=== PATIENT | female | born 1945 | race Caucasian/White ===

== ENCOUNTER 2024-04-19 12:58 | Inpatient (IN) | payer MEDICARE ==
--- NOTE | 2024-04-19 14:17 | ED ---
General Adult HPI - General Chief complaint: Weakness Stated complaint: weakness Time Seen by Provider: 04/19/24 14:00 Source: patient, EMS, RN notes reviewed, old records reviewed Mode of arrival: EMS Limitations: altered mental status - History of Present Illness Initial comments: This 78-year-old female who presents to the emergency department today because she was unable to ambulate this morning because both of her legs are weak. According to the son in the room she was able to walk yesterday but unable to walk today. Patient also had a fall on Thursday and landed on her bottom she is able to move both legs and denies any significant pain though she states her right hip hurts a little. Patient according to the son was a little confused this morning but currently she seems to be at her baseline according to the son. Patient has no headache patient denies any focal numbness or weakness. Patient Nuys any chest pain denies any difficulty breathing or shortness of breath. Patient has any abdominal pain patient has nausea vomiting diarrhea. - Related Data Home Medications Medication Instructions Recorded Confirmed Donepezil [Aricept] 10 mg PO HS 05/08/14 04/19/24 Lisinopril-Hctz 20-25 mg 1 tab PO DAILY 05/08/14 04/19/24 [Zestoretic 20-25] Simvastatin [Zocor] 20 mg PO HS 05/08/14 04/19/24 amLODIPine [Norvasc] 10 mg PO DAILY 05/08/14 04/19/24 Aspirin EC [Ecotrin Low Dose] 81 mg PO DAILY 04/19/24 04/19/24 Citalopram Hydrobromide [CeleXA] 20 mg PO HS 04/19/24 04/19/24 Metoprolol Succinate (ER) [Toprol 50 mg PO DAILY 04/19/24 04/19/24 Xl] Allergies Allergy/AdvReac Type Severity Reaction Status Date / Time No Known Allergies Allergy Verified 04/19/24 14:57 Review of Systems ROS Statement: Those systems with pertinent positive or pertinent negative responses have been documented in the HPI. ROS Other: All systems not noted in ROS Statement are negative. Past Medical History Past Medical History: CVA/TIA, Hyperlipidemia, Hypertension, Memory Impairment, Osteoarthritis (OA) History of Any Multi-Drug Resistant Organisms: None Reported Past Surgical History: Cholecystectomy, Hysterectomy, Tonsillectomy Past Anesthesia/Blood Transfusion Reactions: No Reported Reaction Past Psychological History: Depression Smoking Status: Never smoker Past Alcohol Use History: None Reported Past Drug Use History: None Reported - Past Family History Mother Family Medical History: Cancer General Exam - General Exam Comments Initial Comments: GENERAL: Patient is well-developed and well-nourished. Patient is nontoxic and well- hydrated and is in mild distress. ENT: Neck is soft and supple. No significant lymphadenopathy is noted. Oropharynx is clear. Moist mucous membranes. Neck has full range of motion without eliciting any pain. EYES: The sclera were anicteric and conjunctiva were pink and moist. Extraocular movements were intact and pupils were equal round and reactive to light. Eyelids were unremarkable. PULMONARY: Unlabored respirations. Good breath sounds bilaterally. No audible rales rhonchi or wheezing was noted. CARDIOVASCULAR: There is a regular rate and rhythm without any murmurs gallops or rubs. ABDOMEN: Soft and nontender with normal bowel sounds. No palpable organomegaly was noted. There is no palpable pulsatile mass. SKIN: Intertrigo under the breasts and pannus patient has a stage I decubitus ulcer on the sacral area NEUROLOGIC: Patient is alert and oriented x3. Cranial nerves II through XII are grossly intact. Motor and sensory are also intact. Normal speech, volume and content. Symmetrical smile. NIH is 0 MUSCULOSKELETAL: Normal extremities with adequate strength and full range of motion. Mild posterior right hip pain on palpation but full range of motion LYMPHATICS: No significant lymphadenopathy is noted PSYCHIATRIC: Normal psychiatric evaluation. Limitations: altered mental status Course Vital Signs 04/19/24 04/19/24 13:03 15:03 Temperature 97.4 F L Pulse Rate 85 81 Respiratory 18 18 Rate Blood Pressure 154/78 155/81 O2 Sat by Pulse 95 96 Oximetry Medical Decision Making - Medical Decision Making EKG is interpreted by myself. EKG shows a sinus rhythm with an occasional PAC at a rate of 81 bpm parables 179 QRS is 80 QT interval 370 QTc is 408. Patient's EKG shows no ST segment elevation or depression. Was pt. sent in by a medical professional or institution (, PA, THERAPEUTIC PROGRAM WORKER, urgent care, hospital, or half-way...) When possible be specific @ -No Did you speak to anyone other than the patient for history (EMS, parent, family, police, friend...)? What history was obtained from this source @ -This son relayed quite a bit of the history because the patient was somewhat forgetful Did you review nursing and triage notes (agree or disagree)? Why? @ -I reviewed and agree with nursing and triage notes Were old charts reviewed (outside hosp., previous admission, EMS record, old EKG, old radiological studies, urgent care reports/EKG's, half-way records)? Report findings @ -No old charts were reviewed Differential Diagnosis? @ -Differential Weakness: Hypoglycemia, shock, sepsis, hyponatremia, anemia, infection, ME, ETOH, adverse medicine reaction, overdose, stroke, this is not meant to be an all-inclusive list. EKG interpreted by me (3pts min.). @ -As above X-rays interpreted by me (1pt min.). @ -X-ray shows no acute normality CT interpreted by me (1pt min.). @ -None done U/S interpreted by me (1pt. min.). @ -None done What testing was considered but not performed or refused? (CT, X-rays, U/S, labs)? Why? @ -None What meds were considered but not given or refused? Why? @ -None Did you discuss the management of the patient with other professionals (professionals i.e. , PA, THERAPEUTIC PROGRAM WORKER, lab, RT, psych nurse, protective services social worker, supervisor [employer], teacher, co founder and chief strategy officer, case aide)? Give summary @ -I spoke with [facility] hospitalist and he agreed to admit the patient admit the patient for admitting orders Was smoking cessation discussed for >3mins.? @ -No Was critical care preformed (if so, how long)? @ -No Were there social determinants of health that impacted care today? How? (Homeles sness, low income, unemployed, alcoholism, drug addiction, transportation, low edu. Level, literacy, decrease access to med. care, skilled nursing, rehab)? @ -No Was there de-escalation of care discussed even if they declined (Discuss DNR or withdrawal of care, Hospice)? DNR status @ -No What co-morbidities impacted this encounter? (DM, HTN, Smoking, COPD, CAD, Cancer, CVA, ARF, Chemo, Hep., AIDS, mental health diagnosis, sleep apnea, morbid obesity)? @ -None Was patient admitted / discharged? Hospital course, mention meds given and route, prescriptions, significant lab abnormalities, going to OR and other pertinent info. @ -Patient had a urinary tract infection but was still unable to ambulate I could not find no other source of infection so I will be treating the patient for a urinary tract infection. Undiagnosed new problem with uncertain prognosis? @ -No Drug Therapy requiring intensive monitoring for toxicity (Heparin, Nitro, Insulin, Cardizem)? @ -No Were any procedures done? @ -No Diagnosis/symptom? @ -Urinary tract infection Acute, or Chronic, or Acute on Chronic? @ -Acute Uncomplicated (without systemic symptoms) or Complicated (systemic symptoms)? @ -Complicated Side effects of treatment? @ -No Exacerbation, Progression, or Severe Exacerbation? @ -No Poses a threat to life or bodily function? How? (Chest pain, USA, ME, pneumonia, PE, COPD, DKA, ARF, appy, cholecystitis, CVA, Diverticulitis, Homicidal, Suicidal, threat to staff... and all critical care pts) @ -Yes this could lead to sepsis and endorgan dysfunction Diagnosis/symptom? @ -Inability to ambulate Acute, or Chronic, or Acute on Chronic? @ -Acute Uncomplicated (without systemic symptoms) or Complicated (systemic symptoms)? @ -Complicated Side effects of treatment? @ -None Exacerbation, Progression, or Severe Exacerbation] @ -No Poses a threat to life or bodily function? @ -No - Lab Data Result diagrams: 04/19/24 14:21 Lab Results 04/19/24 04/19/24 04/19/24 Range/Units 14:21 14:21 14:21 WBC 16.4 H (3.8-10.6) k/uL RBC 5.22 (3.80-5.40) m/uL Hgb 15.1 (11.4-16.0) gm/dL Hct 47.5 H (34.0-46.0) % MCV 91.0 (80.0-100.0) fL MCH 28.9 (25.0-35.0) pg MCHC 31.7 (31.0-37.0) g/dL RDW 14.0 (11.5-15.5) % Plt Count 237 (150-450) k/uL MPV 8.0 Neutrophils % 86 % Lymphocytes % 5 % Monocytes % 6 % Eosinophils % 2 % Basophils % 0 % Neutrophils # 14.1 H (1.3-7.7) k/uL Lymphocytes # 0.8 L (1.0-4.8) k/uL Monocytes # 1.0 (0-1.0) k/uL Eosinophils # 0.3 (0-0.7) k/uL Basophils # 0.0 (0-0.2) k/uL PT 11.5 (10.0-12.5) sec INR 1.1 (<1.2) APTT 20.4 L (22.0-30.0) sec Plasma Lactic Acid Akhil (0.7-2.0) mmol/L Troponin I (0.000-0.034) ng/mL Urine Color Yellow Urine Appearance Cloudy H (Clear) Urine pH 5.0 (5.0-8.0) Ur Specific [place] 1.023 (1.001-1.035) Urine Protein Trace H (Negative) Urine Glucose (UA) Negative (Negative) Urine Ketones Negative (Negative) Urine Blood Moderate H (Negative) Urine Nitrite Negative (Negative) Urine Bilirubin Negative (Negative) Urine Urobilinogen 2.0 (<2.0) mg/dL Ur Leukocyte Esterase Large H (Negative) Urine RBC 8 H (0-5) /hpf Urine WBC 6 H (0-5) /hpf Ur Squamous Epith Cells 1 (0-4) /hpf Urine Bacteria Many H (None) /hpf Hyaline Casts 1 (0-2) /lpf Urine Mucus Rare H (None) /hpf 04/19/24 04/19/24 Range/Units 14:21 14:21 WBC (3.8-10.6) k/uL RBC (3.80-5.40) m/uL Hgb (11.4-16.0) gm/dL Hct (34.0-46.0) % MCV (80.0-100.0) fL MCH (25.0-35.0) pg MCHC (31.0-37.0) g/dL RDW (11.5-15.5) % Plt Count (150-450) k/uL MPV Neutrophils % % Lymphocytes % % Monocytes % % Eosinophils % % Basophils % % Neutrophils # (1.3-7.7) k/uL Lymphocytes # (1.0-4.8) k/uL Monocytes # (0-1.0) k/uL Eosinophils # (0-0.7) k/uL Basophils # (0-0.2) k/uL PT (10.0-12.5) sec INR (<1.2) APTT (22.0-30.0) sec Plasma Lactic Acid Akhil 1.8 (0.7-2.0) mmol/L Troponin I 0.022 (0.000-0.034) ng/mL Urine Color Urine Appearance (Clear) Urine pH (5.0-8.0) Ur Specific [place] (1.001-1.035) Urine Protein (Negative) Urine Glucose (UA) (Negative) Urine Ketones (Negative) Urine Blood (Negative) Urine Nitrite (Negative) Urine Bilirubin (Negative) Urine Urobilinogen (<2.0) mg/dL Ur Leukocyte Esterase (Negative) Urine RBC (0-5) /hpf Urine WBC (0-5) /hpf Ur Squamous Epith Cells (0-4) /hpf Urine Bacteria (None) /hpf Hyaline Casts (0-2) /lpf Urine Mucus (None) /hpf Disposition Clinical Impression: Weakness, Inability to walk, Urinary tract infection Disposition: ADMITTED IP TO THIS HOSP Referrals: Chika Waggoner DO [Primary Care Provider] - 1-2 days Time of Disposition: 17:26
[2024-04-19] MEDS: SODIUM CHLORIDE 0.9% 500 ML 500 ML IV STA (14:45)
[2024-04-19 14:48] LABS: Basophils % (A) 0 %; Eosinophils # (A) 0.3 k/uL (0-0.7); Eosinophils % (A) 2 %; HCT 47.5 % (34.0-46.0); HGB 15.1 gm/dL (11.4-16.0); Lymphocytes # (A) 0.8 k/uL (1.0-4.8); Lymphocytes % (A) 5 %; MCH 28.9 pg (25.0-35.0); MCHC 31.7 g/dL (31.0-37.0); Monocytes % (A) 6 %; Neutrophils # (A) 14.1 k/uL (1.3-7.7); Neutrophils % (A) 86 %; Platelet Count 237 k/uL (150-450); RBC 5.22 m/uL (3.80-5.40); WBC 16.4 k/uL (3.8-10.6)
[2024-04-19 15:24] LABS: INR 1.1 (<1.2); Prothrombin Time 11.5 sec (10.0-12.5)
--- NOTE | 2024-04-19 16:01 | XR ---
EXAMINATION TYPE: XR chest 2V DATE OF EXAM: 04/19/2024 3:50 PM CLINICAL INDICATION:Female, 78 years old with history of Weakness; COMPARISON: None TECHNIQUE: XR chest 2V Frontal and lateral views of the chest. FINDINGS: Lungs/Pleura: There is no evidence of pleural effusion, focal consolidation, or pneumothorax. Pulmonary vascularity: Unremarkable. Heart/mediastinum: Cardiomediastinal silhouette is unremarkable. Atherosclerotic calcifications are seen in the aorta. Musculoskeletal: No acute osseous pathology. IMPRESSION: No acute cardiopulmonary disease/process.
[2024-04-19 16:02] LABS: Partial Thromboplastin Time 20.4 sec (22.0-30.0)
[2024-04-19 16:18] LABS: Appearance,Urine Cloudy (Clear); Bacteria,Urine Many /hpf; Bilirubin,Urine Negative (Negative); Blood,Urine Moderate (Negative); Color,Urine Yellow; Glucose,Urine (UA) Negative (Negative); Hyaline Casts,Urine 1 /lpf (0-2); Ketones,Urine Negative (Negative); Leukocyte Esterase,Urine Large (Negative); Mucus,Urine Rare /hpf; Nitrite,Urine Negative (Negative); Protein,Urine Trace (Negative); RBC,Urine 8 /hpf (0-5); Specific Gravity,Urine 1.023 (1.001-1.035); Squamous Epithelial Cell,Urine 1 /hpf (0-4); WBC,Urine 6 /hpf (0-5)
[2024-04-19 17:18] LABS: ALT 28 U/L (4-34); African American GFR (CKD) 63 (>60 ml/min/1.73 sqM); Anion Gap 11 mmol/L; Blood Urea Nitrogen 38 mg/dL (7-17); Calcium 9.9 mg/dL (8.4-10.2); Carbon Dioxide 22 mmol/L (22-30); Chloride 106 mmol/L (98-107); Glucose 121 mg/dL (74-99); Non-African American GFR(CKD) 54 (>60 ml/min/1.73 sqM); Sodium 139 mmol/L (137-145); Total Bilirubin 2.2 mg/dL (0.2-1.3)
[2024-04-19 17:23] LABS: AST 41 U/L (14-36); Alkaline Phosphatase 84 U/L (38-126); Magnesium 1.9 mg/dL (1.6-2.3); Potassium 3.5 mmol/L (3.5-5.1)
[2024-04-19] MEDS: SODIUM CHLORIDE 0.9% 1,000 ML IV ONE (17:36)
--- NOTE | 2024-04-19 17:49 | XR ---
EXAMINATION TYPE: XR Hip 2 views RT and AP Pelvis DATE OF EXAM: 04/19/2024 COMPARISON: DEXA scan 07/26/2014 HISTORY: 78-year-old female with right hip pain FINDINGS: There is moderate to severe degenerative change of the left hip with axial joint space loss and exten sive subchondral sclerosis especially of the femoral head. This extensive sclerosis appears to have b een present on the patient's 2013 DEXA scan as well. Assessment is limited by the degree of osteopeni a. No displaced fracture seen. IMPRESSION: Assessment is limited by osteopenia. No displaced fracture seen. Moderate to severe left hip OA. If the patient is nonweightbearing, MRI can provide more sensitive evaluation.
[2024-04-19] MEDS: cefTRIAXone IN SWFI 1,000 MG/10 ML SYRINGE IVP STA (18:01)
[2024-04-20] MEDS: ZINC OXIDE PASTE (Z-GUARD) 1 APPLIC TOPICAL SCH (00:17)
[2024-04-20] MEDS: HEPARIN SODIUM,PORCINE 5,000 UNIT/ML 1 ML VIAL SQ SCH (13:21)
[2024-04-20] MEDS: ASPIRIN 81 MG PO SCH (13:21)
[2024-04-20] MEDS: PANTOPRAZOLE 40 MG TABLET PO SCH (13:21)
--- NOTE | 2024-04-20 14:00 | HP ---
HISTORY AND PHYSICAL CHIEF COMPLAINT: Weakness. HISTORY OF PRESENT ILLNESS: This is a 78-year-old woman with a past medical history of multiple medical problems including CVA, TIA, hypertension, hyperlipidemia, was complaining of weakness. The patient apparently had a fall yesterday and the patient is not able to walk. The patient is mildly confused also. The patient came to [facility] and was noted to have possible UTI also. Empiric antibiotics initiated. There is no history of any fever, rigors, or chills at this time. The hip, pelvis x-rays showed osteopenia and DJD of the left hip. There is no history of any fever, rigors, or chills. PAST MEDICAL HISTORY: History of CVA, TIA, hypertension, hyperlipidemia, and history of dementia. HOME MEDICATIONS: Reviewed include Norvasc. Doses and rest of medications noted. ALLERGIES: None. FAMILY HISTORY: History of cancer. SOCIAL HISTORY: No history of smoking or alcohol. REVIEW OF SYSTEMS: A 14-point review is negative except as mentioned earlier. PHYSICAL EXAMINATION: VITAL SIGNS: Pulse is 55, blood pressure 106/50, respirations 16. HEENT: Conjunctivae normal. NECK: No jugular venous distention. CARDIOVASCULAR: S1, S2. RESPIRATIONS: Diminished at the bases, few scattered rhonchi and crackles. ABDOMEN: Soft. NERVOUS SYSTEM: Diffusely weak. No focal weakness appreciated. Gait not tested. SKIN: No ulcer, rash, bleeding. JOINTS: No active deforming arthropathy. LABORATORY DATA: WBC 16.2, rest of the labs are noted. ASSESSMENT: 1. Fall and weakness for evaluation. 2. Possible acute UTI present on admission. 3. Increased WBC. 4. Hypertension. 5. Hyperlipidemia. 6. History of TIA. 7. History of DJD. 8. History of cholecystectomy. RECOMMENDATIONS AND DISCUSSION: This 78-year-old woman presented with multiple complex medical issues, we will monitor the patient closely. Initiate broad-spectrum IV antibiotics. I would also recommend PT, OT evaluation, and CT scan of the brain and assess lumbar spine x-rays also. If the weakness is not improving, I would also recommend a complete neurology evaluation, neurology consultation. Also, we will continue to monitor. Guarded prognosis. Further recommendations to follow. See orders for details. We will obtain PT OT evaluation if the patient is really weak, possible ECF rehab. Symptomatic treatment will be provided in the meantime. MMODL / IJN: [id number] /
--- NOTE | 2024-04-20 14:42 | CT ---
EXAMINATION TYPE: CT brain wo con CT DLP: 1047.1 mGycm, Automated exposure control for dose reduction was used. DATE OF EXAM: 04/20/2024 2:21 PM COMPARISON: 01/28/2011. CLINICAL INDICATION:Female, 78 years old with history of stroke, h/o stroke TECHNIQUE: Brain: Axial CT images of the brain were obtained with coronal and sagittal reformats created and rev iewed. Contrast used: None. Oral contrast used: None. FINDINGS: Brain: Extra-axial spaces: No abnormal extra-axial fluid collections. Ventricular system: Dilatation in proportion to cerebral atrophy. Cerebral parenchyma: Hypodense areas in the bilateral basal ganglia and left thalami. Cerebral atroph y. No acute intraparenchymal hemorrhage or mass effect. The sosa-white junction is well differentiat ed. Scattered hypoattenuating areas are seen within the white matter. Cerebellum: Unremarkable. Mass effect: No evidence of midline shift. Intracranial vasculature: Atherosclerotic calcifications of the intracranial vessels. Soft tissues: Normal. Calvarium/osseous structures: No depressed skull fracture. Paranasal sinuses and mastoid air cells: Mild scattered paranasal sinus disease. Visualized orbits: Orbital contents are intact. IMPRESSION: 1. No acute intracranial process. 2. Remote lacunar injuries along with nonspecific white matter changes likely secondary to chronic mi croangiopathy.
--- NOTE | 2024-04-20 16:30 | XR ---
EXAMINATION TYPE: XR spine complete AP and Lat, 9 views DATE OF EXAM: 04/20/2024 COMPARISON: NONE HISTORY: 78-year-old female fall and weakness FINDINGS: Cervical spine: No predental space widening or prevertebral soft tissue swelling. Degenerative change at the C1 dens articulation. Hypertrophic facet arthropathy throughout. There is degenerative grade 1 anterolisthesi s C3-C4 and C4-C5. Remaining alignment is maintained. Mild to moderate degenerative disc disease sugg ested at C5-C7 levels with disc space narrowing and endplate spondylosis. Thoracic spine: 12 rib-bearing thoracic vertebral bodies. All pedicles are visualized. Osteopenia. Vertebral body hei ghts are preserved and alignment is maintained. Lumbar spine: Slightly upper truncal shift. 5 lumbar type vertebral bodies. Advanced hypertrophic facet arthropathy mid to lower lumbar spine with grade 2 anterolisthesis at L4-L5. Grade 1 retrolisthesis L1-L2, L2-L3 , L3-L4. Vertebral body heights are preserved. Atherosclerotic calcifications throughout the abdomina l aorta and iliac arteries. Osteopenia. Baastrup's disease. IMPRESSION: 1. Cervical spine: Moderate spondylotic change especially C5-C7 levels. Degenerative grade 1 anteroli sthesis C3-C4 and C4-C5. 2. Thoracic spine: Osteopenia. No vertebral compression collapse or malalignment. 3. Lumbar spine: Osteopenia. Advanced hypertrophic facet arthropathy mid to lower lumbar spine with g rade 2 anterolisthesis at L4-L5. Grade 1 retrolisthesis L1-L4 levels. Baastrup's disease.
[2024-04-20] MEDS: THIAMINE 100 MG TAB PO SCH (18:44)
[2024-04-20] MEDS: ATORVASTATIN 10 MG TAB PO SCH (20:19)
[2024-04-20] MEDS: DONEPEZIL 10 MG TAB PO SCH (20:19)
[2024-04-20] MEDS: CITALOPRAM HYDROBROMIDE 20 MG TAB PO SCH (20:19)
[2024-04-21] MEDS: ACETAMINOPHEN TAB 500 MG TAB PO PRN (02:54)
[2024-04-21 08:00] LABS: African American GFR (CKD) >90 (>60 ml/min/1.73 sqM); Anion Gap 5 mmol/L; Blood Urea Nitrogen 14 mg/dL (7-17); Calcium 9.3 mg/dL (8.4-10.2); Carbon Dioxide 25 mmol/L (22-30); Chloride 108 mmol/L (98-107); Glucose 95 mg/dL (74-99); Non-African American GFR(CKD) 86 (>60 ml/min/1.73 sqM); Potassium 3.5 mmol/L (3.5-5.1); Sodium 138 mmol/L (137-145)
[2024-04-21] MEDS: amLODIPine 10 MG TAB PO SCH (08:52)
[2024-04-21] MEDS: LISINOPRIL-HCTZ 20-25 MG 1 EACH TAB PO SCH (08:52)
[2024-04-21] MEDS: METOPROLOL SUCCINATE (ER) 50 MG TAB.ER.24H PO SCH (08:52)
[2024-04-21 11:01] LABS: Basophils # (A) 0.08 X 10*3/uL (0.00-0.10); Basophils % (A) 0.7 %; Eosinophils # (A) 0.37 X 10*3/uL (0.04-0.35); Eosinophils % (A) 3.3 %; HCT 43.5 % (37.2-46.3); HGB 13.8 g/dL (12.0-15.0); Lymphocytes # (A) 1.39 X 10*3/uL (0.90-5.00); Lymphocytes % (A) 12.3 %; MCH 29.5 pg (27.0-32.0); MCHC 31.7 g/dL (32.0-37.0); MCV 92.9 FL (80.0-97.0); Monocytes % (A) 8.9 %; NRBC Per 100 WBC 0 X 10*3/uL (0.00-0.01); Neutrophils # (A) 8.36 X 10*3/uL (1.80-7.70); Neutrophils % (A) 74.1 %; Platelet Count 223 X 10*3/uL (140-440); RBC 4.68 X 10*6/uL (4.10-5.20); RDW 14.3 % (11.5-14.5); WBC 11.28 X 10*3/uL (4.50-10.00)
[2024-04-21] MEDS: MULTIVITAMINS, THERA 1 EACH TAB PO SCH (11:55)
[2024-04-21] MEDS: FOLIC ACID 1 MG TAB PO SCH (11:55)
--- NOTE | 2024-04-21 14:53 | P.CNNES ---
History of Present Illness Consult date: 04/21/24 Requesting physician: Demetra Young Reason for Consult: weakness, ams, hx of cva/tia History of Present Illness: This is a 78-year-old woman who presented emergency department because of trouble standing up with leg weakness. Patient stated for the last several days she has been having problems standing up and she has been having leg weakness. She stated she had a fall within 3 weeks because of her loss of balance. Denies any focal weakness, any lower back pain. Denies any upper extremity weakness difficulty getting words out swallowing visual disturbance or numbness or tingling. She states she wears briefs at baseline. Denies any bowel incontinence. She feels somewhat better today compared to yesterday. Does have history of old stroke and she is on aspirin 81 mg daily. Some of the workup during this hospital visit consisted of: Urinalysis seems possible suggestive of underlying urinary tract infection CT of the head is reported as no acute intracranial process. Remote lacunar injuries along with nonspecific white matter changes likely secondary to chronic microangiopathy. Reviewed CT and I agree patient has chronic white matter changes. Seems the patient has bilateral lacunar stroke over the basal ganglia Spine x-ray and is reported as cervical spine of moderate spondylitic changes especially C5-C6 level degenerative grade 1 anterior lithiasis C3-C4 and C4-C5. The thoracic shows osteopenia. No vertebral or compression collapse or malalignment. Lumbar shows osteopenia. Advanced hypertrophic facet arthroplasty mild to lower lumbar spine with a grade 2 anterior lithiasis at L4-L5. Grade 1 retrolisthesis L1-L4 level. Baastrup disease. Review of Systems The positive and negative as per HPI. Past Medical History Past Medical History: CVA/TIA, Hyperlipidemia, Hypertension, Memory Impairment, Osteoarthritis (OA) Additional Past Medical History / Comment(s): Pt states this is all that she knows of right now History of Any Multi-Drug Resistant Organisms: None Reported Past Surgical History: Cholecystectomy, Hysterectomy, Tonsillectomy Past Anesthesia/Blood Transfusion Reactions: No Reported Reaction Past Psychological History: Depression Smoking Status: Never smoker Past Alcohol Use History: None Reported Past Drug Use History: None Reported - Past Family History Mother Family Medical History: Cancer Medications and Allergies Home Medications Medication Instructions Recorded Confirmed Type Donepezil [Aricept] 10 mg PO HS 05/08/14 04/19/24 History Lisinopril-Hctz 20-25 mg 1 tab PO DAILY 05/08/14 04/19/24 History [Zestoretic 20-25] Simvastatin [Zocor] 20 mg PO HS 05/08/14 04/19/24 History amLODIPine [Norvasc] 10 mg PO DAILY 05/08/14 04/19/24 History Aspirin EC [Ecotrin Low Dose] 81 mg PO DAILY 04/19/24 04/19/24 History Citalopram Hydrobromide [CeleXA] 20 mg PO HS 04/19/24 04/19/24 History Metoprolol Succinate (ER) [Toprol 50 mg PO DAILY 04/19/24 04/19/24 History Xl] Allergies Allergy/AdvReac Type Severity Reaction Status Date / Time No Known Allergies Allergy Verified 04/19/24 14:57 Physical Examination - Vital Signs Vital Signs: Vital Signs Temp Pulse Resp BP BP Pulse Ox 04/21/24 08:32 96 04/21/24 08:00 97.8 F 75 16 169/75 97 04/21/24 02:15 160/85 04/21/24 01:28 98.8 F 75 20 195/97 94 L 04/20/24 19:21 98.4 F 96 20 162/87 95 Intake and Output 04/20/24 04/21/24 04/21/24 22:59 06:59 14:59 Output Total 400 200 Balance -400 -200 Output: Urine 400 200 Other: Voiding Method Diaper External Catheter # Bowel Movements 1 GENERAL: The patient is lying in bed and is not in acute distress. HENT: Supple neck. NEUROLOGICAL: Higher mental function: The patient is awake, alert, oriented to self, place and time. Patient is following commands. No aphasia and no neglect. Cranial nerves: The pupils are round, equal and reactive to light and accommodation. Visual gaviria are full to confrontation throughout. Extraocular movement is intact no nystagmus is noted. Facial sensation is normal to touch throughout. The facial strength is normal throughout. Hearing is mildly ecreased bilaterally to hand rub. Tongue is midline and moved [id number] without any difficulty. No dysarthria is noted. Shoulder shrug is normal bila terally. Motor: The strength is 5 over 5 throughout. uppers and having weakness in lowers with some pain, in which proximally is 1-2 while ankles are 3. Normal tone and bulk. Cerebellum: Normal finger to nose bilaterally. Sensation: Sensation is normal to touch throughout. Reflexes (right/left): Biceps 3+/3+; triceps 3+/3+; brachioradialis 3+/3+; patellar deferred since once attempted pulled back and refused; ankles 2+/2+. Plantars: right is mute and left is upgoing at baseline but later was mute. Results - Laboratory Findings CBC and BMP: 04/21/24 06:12 04/21/24 06:12 Abnormal Lab Findings: Abnormal Labs 04/19/24 04/19/24 04/19/24 14:21 14:21 14:21 WBC 16.4 H Hct 47.5 H MCHC Immature Gran # Neutrophils # 14.1 H Lymphocytes # 0.8 L Eosinophils # APTT 20.4 L Chloride BUN Glucose Total Bilirubin AST Urine Appearance Cloudy H Urine Protein Trace H Urine Blood Moderate H Ur Leukocyte Esterase Large H Urine RBC 8 H Urine WBC 6 H Urine Bacteria Many H Urine Mucus Rare H 04/19/24 04/21/24 04/21/24 16:50 06:12 06:12 WBC 11.28 H Hct MCHC 31.7 L Immature Gran # 0.08 H Neutrophils # 8.36 H Lymphocytes # Eosinophils # 0.37 H APTT Chloride 108 H BUN 38 H Glucose 121 H Total Bilirubin 2.2 H AST 41 H Urine Appearance Urine Protein Urine Blood Ur Leukocyte Esterase Urine RBC Urine WBC Urine Bacteria Urine Mucus Assessment and Plan Assessment: This is a 78-year-old woman who presents emergency department because for the past several days she is having leg weakness with loss of balance and had falls. On examination patient has bilateral lower extremity weakness as well as brisk reflex predominantly in the uppers. Bilateral lower extremity weakness with falls in the last 3 weeks with unsteady gait. Examination patient had bilateral lower extremity weakness and brisk reflexes in the uppers. Rule out cervical/thoracic myelopathy Or underlying acute UTI History of stroke in the past Underlying history of hypertension Hyperlipidemia Plan: I ordered CT cervical thoracic and lumbar spine. Is a holiday so cannot obtain MRI so therefore we will get the CT and then afterwards tomorrow likely will pursue with the MRI I consulted orthopedic surgery team PT and OT are consulted Patient is on home dose of aspirin 81 mg daily and is on Lipitor 10 mg nightly. Will defer the rest of the medical management to primary and other specialist I discussed with the patient and the primary team Thank you for the consult Time with Patient: Greater than 30
--- NOTE | 2024-04-21 16:20 | CT ---
EXAMINATION TYPE: CT cervical spine wo con CT DLP: 404.6 mGycm, Automated exposure control for dose reduction was used. DATE OF EXAM: 04/21/2024 3:58 PM COMPARISON: None. CLINICAL INDICATION:Female, 78 years old with history of falls with unsteady gait.; PHH, multiple fal ls, unsteady gait TECHNIQUE: Axial CT images from the skull base to the inferior aspect of T2 we obtained without intra venous contrast. Coronal and sagittal reformatted images were also reviewed. Contrast used: mL of , (if blank None) Oral contrast used: (if blank None) FINDINGS: Fracture: None. Osseous structures: Multilevel degenerative disc disease changes ankylosis of the left lateral proces ses of C4 and C5 with endplate spurring and disc osteophyte complex's. Vertebral alignment: Straightening of the cervical alignment. Spinal canal/Neural Foramina: No evidence of significant spinal canal narrowing. No evidence for sign ificant neural foraminal stenosis. Neck soft tissues: Prevertebral soft tissues are within normal limits. Other: The airway is patent. The lung apices are clear. Atherosclerosis of the carotid bifurcations. Other nodular goiter the neck. Extends into the superior mediastinum. IMPRESSION: 1. No evidence of cervical spine fracture. 2. Mild to moderate multilevel degenerative disc disease.
--- NOTE | 2024-04-21 16:30 | CT ---
EXAMINATION TYPE: CT thor lumbar spine wo con CT DLP: 3072 mGycm, Automated exposure control for dose reduction was used. DATE OF EXAM: 04/21/2024 4:01 PM CLINICAL INDICATION:Female, 78 years old with history of falls with unsteady gait.; multiple falls, u nsteady gait COMPARISON: None TECHNIQUE: Axial images of the thoracic and lumbar spine were obtained without contrast. Coronal and sagittal reformats were performed. CT Contrast: Contrast used: mL of , none. Oral contrast used: none. FINDINGS: Multilevel degeneration changes throughout the thoracic and lumbar spine with osteophyte formation an d facet joint arthropathy and disc space narrowing. No evidence for fracture of the thoracic or lumba r spine. Scattered small stones. Grade 2 anterolisthesis of L4 on L5. L5 is not in the [id number]. Degeneration changes of the right shoulder with joint space narrowing osteophyte formation. IMPRESSION: 1. No evidence of fracture of the thoracic or lumbar spine. 2. No evidence for significant spinal canal or neural from stenosis. 3. Grade 2 anterolisthesis of L4 and L5 without spondylolysis. 4. [id number] multilevel degeneration changes spine.
--- NOTE | 2024-04-21 16:46 | PN ---
PROGRESS NOTE DATE OF SERVICE: 04/21/2024 SUBJECTIVE: This is a 78-year-old woman, who was admitted with weakness, had more weakness in both lower legs. Neurology is following the patient closely and is requesting MRI. No chest pain or palpitation. The spine x-rays showed moderate spondylitic changes and facet arthropathy. PHYSICAL EXAMINATION: VITAL SIGNS: Pulse is 75, blood pressure 169/74, and respirations 16. CHEST: Few scattered rhonchi. ABDOMEN: Soft. NERVOUS SYSTEM: Diffusely weak especially in the lower legs. LABORATORY DATA: Noted. ASSESSMENT: 1. Fall and weakness for evaluation. 2. Possible acute urinary tract infection present on admission. 3. Increased WBC. 4. Hypertension. 5. Hyperlipidemia. 6. History of transient ischemic attack. 7. History of degenerative joint disease. 8. History of cholecystectomy. RECOMMENDATIONS: Recommend to continue current medical management and symptomatic treatment. Otherwise, cultures are negative. We will continue to monitor. Follow closely with Neurology. PT/OT evaluation. Prognosis guarded. Further recommendations to follow. MMODL / IJN: [id number] /
[2024-04-21] MEDS: NYSTATIN 100,000 UNIT/GM POWD 15 GM TOPICAL SCH (20:28)
[2024-04-22 08:45] LABS: Basophils # (A) 0.06 X 10*3/uL (0.00-0.10); Basophils % (A) 0.5 %; Eosinophils # (A) 0.52 X 10*3/uL (0.04-0.35); Eosinophils % (A) 4.7 %; HCT 40.6 % (37.2-46.3); HGB 13.3 g/dL (12.0-15.0); Lymphocytes # (A) 1.19 X 10*3/uL (0.90-5.00); Lymphocytes % (A) 10.8 %; MCH 29.3 pg (27.0-32.0); MCHC 32.8 g/dL (32.0-37.0); MCV 89.4 FL (80.0-97.0); Mean Platelet Volume 9.8 FL (9.5-12.2); Monocytes # (A) 0.89 X 10*3/uL (0.20-1.00); Monocytes % (A) 8.1 %; NRBC Per 100 WBC 0 X 10*3/uL (0.00-0.01); Neutrophils # (A) 8.24 X 10*3/uL (1.80-7.70); Neutrophils % (A) 75.3 %; Platelet Count 228 X 10*3/uL (140-440); RBC 4.54 X 10*6/uL (4.10-5.20); RDW 13.8 % (11.5-14.5); WBC 10.97 X 10*3/uL (4.50-10.00)
[2024-04-22 09:00] LABS: BUN/Creat Ratio 14.71 Ratio (12.00-20.00); Blood Urea Nitrogen 10.3 mg/dL (9.0-27.0); Calcium 9.1 mg/dL (8.7-10.3); Carbon Dioxide 25.3 mmol/L (21.6-31.8); Chloride 102 mmol/L (96-109); Glucose 97 mg/dL (70-110); Potassium 3.5 mmol/L (3.5-5.5); Sodium 138 mmol/L (135-145)
--- NOTE | 2024-04-22 14:53 | P.PN ---
Subjective Progress Note Date: 04/22/24 I am following-up with patient and feels about the same. Denies any worsening or any new neurological issues. Objective - Vital Signs Vital signs: Vital Signs Temp 98.4 F 04/22/24 13:03 Pulse 70 04/22/24 13:03 Resp 17 04/22/24 13:03 BP 141/78 04/22/24 13:03 Pulse Ox 94 L 04/22/24 13:03 FiO2 Intake & Output 04/21/24 04/22/24 04/22/24 18:59 06:59 18:59 Intake Total 480 Output Total 1200 600 Balance -720 -600 Intake: Oral 480 Output: Urine 1200 600 Other: Voiding Method Diaper Diaper Diaper External Catheter External Catheter External Catheter - Exam GENERAL: The patient is lying in bed and is not in acute distress. HENT: Supple neck. NEUROLOGICAL: Higher mental function: The patient is awake, alert, oriented to self, place and time. Patient is following commands. No aphasia and no neglect. Cranial nerves: The pupils are round, equal and reactive to light and accommodation. Visual gaviria are full to confrontation throughout. Extraocular movement is intact no nystagmus is noted. Facial sensation is normal to touch throughout. The facial strength is normal throughout. Hearing is mildly ecreased bilaterally to hand rub. Tongue is midline and moved [id number] without any difficulty. No dysarthria is noted. Shoulder shrug is normal bilaterally. Motor: The strength is 5 over 5 throughout. uppers and having weakness in lowers with some pain, in which proximally is 1-2 while ankles are 3. Normal tone and bulk. Cerebellum: Normal finger to nose bilaterally. Sensation: Sensation is normal to touch throughout. Reflexes (right/left): Biceps 3+/3+; triceps 3+/3+; brachioradialis 3+/3+; patellar deferred since once attempted pulled back and refused; ankles 2+/2+. Plantars: right is mute and left is upgoing at baseline but later was mute. Some of the workup during this hospital visit consisted of: Urinalysis seems possible suggestive of underlying urinary tract infection CT of the head is reported as no acute intracranial process. Remote lacunar injuries along with nonspecific white matter changes likely secondary to chronic microangiopathy. Reviewed CT and I agree patient has chronic white matter changes. Seems the patient has bilateral lacunar stroke over the basal ganglia Spine x-ray and is reported as cervical spine of moderate spondylitic changes especially C5-C6 level degenerative grade 1 anterior lithiasis C3-C4 and C4-C5. The thoracic shows osteopenia. No vertebral or compression collapse or malalignment. Lumbar shows osteopenia. Advanced hypertrophic facet arthroplasty mild to lower lumbar spine with a grade 2 anterior lithiasis at L4- L5. Grade 1 retrolisthesis L1-L4 level. Baastrup disease. CT cervical spine: No evidence of cervical spine fracture. Mild to moderate degenerative disc disease. CT thoracic/lumbar: No evidence of fracture of the thoracic or lumbar spine. No evidence for significant spinal canal or neural stenosis. Grade 2 anteroli sthesis of L4 and L5 without spondylosis. Mild to moderate multilevel degeneration changes of spine. - Labs CBC & Chem 7: 04/22/24 04:30 04/22/24 04:30 Labs: Abnormal Lab Results - Last 24 Hours (Table) 04/22/24 Range/Units 04:30 WBC 10.97 H (4.50-10.00) X 10*3/uL Immature Gran # 0.07 H (0.00-0.04) X 10*3/uL Neutrophils # 8.24 H (1.80-7.70) X 10*3/uL Eosinophils # 0.52 H (0.04-0.35) X 10*3/uL Microbiology - Last 24 Hours (Table) 04/20/24 11:30 Urine Culture - Final Urine,Voided 04/19/24 17:38 Blood Culture - Preliminary Blood 04/19/24 17:53 Blood Culture - Preliminary Blood Assessment and Plan Assessment: This is a 78-year-old woman who presents emergency department because for the past several days she is having leg weakness with loss of balance and had falls. On examination patient has bilateral lower extremity weakness as well as brisk reflex predominantly in the uppers. Bilateral lower extremity weakness with falls in the last 3 weeks with unsteady gait. Examination patient had bilateral lower extremity weakness and brisk reflexes in the uppers. Rule out cervical/thoracic myelopathy Or underlying acute UTI History of stroke in the past Underlying history of hypertension Hyperlipidemia Plan: I ordered MRI Brain and cervical spine. TSH and Vitamin B12 is ordered I consulted orthopedic surgery team PT and OT are consulted Patient is on home dose of aspirin 81 mg daily and is on Lipitor 10 mg nightly. Will defer the rest of the medical management to primary and other specialist I discussed with the patient, he son who is at bedside and her nurse. Time with Patient: Less than 30
--- NOTE | 2024-04-22 16:04 | P.CNOR ---
History of Present Illness - [facility] Consult date: 04/22/24 Requesting physician: Shola Leija Consult reason: other (unsteady gait with falls. Reflexe are brisk) History of present illness: Patient is a 78-year-old female who presented to the hospital on 04/19/2024 inability to ambulate due to bilateral lower extremity weakness. Per the ER note, the son stated patient was able to walk yesterday, but not today. Patient did have a fall this past Thursday at home. Patient was seen this afternoon on 6 N lying in the semirecumbent position in bed. Patient states normally at home she ambulates using a walker. She states she had a fall several days ago at home and cannot recall much of the fall. Patient denies hitting her head or losing consciousness. Patient denies any previous orthopedic surgical history. She states she is not currently having any back pain. She notes that she does have some weakness in both of her legs. She says she did work with therapy this morning and says she was able to stand up at bedside albeit with some help. Patient says she does have past medical history significant for stroke which was over 25 to 30 years ago. Patient states she does not think she has any residual symptoms from the stroke. Patient states she is not having any back pain currently. Patient denies any pain down the lower extremities. Patient says she is not diabetic. Patient denies any upper extremity weakness. Neurology an d medicine following. Patient denies any loss of bowel/bladder control. Patient says she has worn depends for the past several years. Patient denies any saddle anesthesia. Patient denies chest pain, fever, shortness of breath, nausea, vomiting, change in vision, loss of bowel/bladder control. Past Medical History Past Medical History: CVA/TIA, Hyperlipidemia, Hypertension, Memory Impairment, Osteoarthritis (OA) Additional Past Medical History / Comment(s): Pt states this is all that she knows of right now History of Any Multi-Drug Resistant Organisms: None Reported Past Surgical History: Cholecystectomy, Hysterectomy, Tonsillectomy Past Anesthesia/Blood Transfusion Reactions: No Reported Reaction Past Psychological History: Depression Smoking Status: Never smoker Past Alcohol Use History: None Reported Past Drug Use History: None Reported - Past Family History Mother Family Medical History: Cancer Medications and Allergies Home Medications Medication Instructions Recorded Confirmed Type Donepezil [Aricept] 10 mg PO HS 05/08/14 04/19/24 History Lisinopril-Hctz 20-25 mg 1 tab PO DAILY 05/08/14 04/19/24 History [Zestoretic 20-25] Simvastatin [Zocor] 20 mg PO HS 05/08/14 04/19/24 History amLODIPine [Norvasc] 10 mg PO DAILY 05/08/14 04/19/24 History Aspirin EC [Ecotrin Low Dose] 81 mg PO DAILY 04/19/24 04/19/24 History Citalopram Hydrobromide [CeleXA] 20 mg PO HS 04/19/24 04/19/24 History Metoprolol Succinate (ER) [Toprol 50 mg PO DAILY 04/19/24 04/19/24 History Xl] Allergies Allergy/AdvReac Type Severity Reaction Status Date / Time No Known Allergies Allergy Verified 04/19/24 14:57 Physical Examination Inspection: Negative for any open fractures, significant erythema/ecchymosis/open wounds. Sensation: Equal, symmetric, bilateral intact throughout the upper and lower extremities on exam. Palpation: Nontender to palpation throughout spine on exam. Nontender to palpation throughout rest of exam. Range of motion: Patient does have good range of motion in bilateral wrist and elbows in flexion/extension. Patient is able to forward elevate right shoulder to about 115 degrees on her own. Patient can forward elevate left shoulder to about 125 degrees. Patient does have limited range of motion of the bilateral hips and knees in flexion/extension while resting in bed. Patient is able to flex the knees to about 60 degrees bilaterally while resting in bed. Patient lacks about 5 degrees full extension in the bilateral knees while resting in bed. Patient does have somewhat limited range of motion in bilateral ankles and dorsi flexion. Motor: 4+/5 senior technical architect strength bilaterally. 4/5 in all other major motor groups in bilateral upper extremities. 4-/5 in resisted bilateral hip flexors extension and knee flexion so extension. 4/5 in EHL/FHL and bilateral ankle dorsi/plantarflexion. Neurovascular: Radial pulse intact, 2+ bilaterally. Cap refill under 3 seconds in digits of upper extremities. Special test: Negative logroll maneuver bilaterally. Negative Homans bilaterally. Negative clonus bilaterally. Negative Shantal bilaterally. Results - Labs Labs: Abnormal Lab Results - Last 24 Hours (Table) 04/22/24 Range/Units 04:30 WBC 10.97 H (4.50-10.00) X 10*3/uL Immature Gran # 0.07 H (0.00-0.04) X 10*3/uL Neutrophils # 8.24 H (1.80-7.70) X 10*3/uL Eosinophils # 0.52 H (0.04-0.35) X 10*3/uL Microbiology - Last 24 Hours (Table) 04/20/24 11:30 Urine Culture - Final Urine,Voided 04/19/24 17:38 Blood Culture - Preliminary Blood 04/19/24 17:53 Blood Culture - Preliminary Blood H & H 04/19/24 04/21/24 04/22/24 Range/Units 14:21 06:12 04:30 Hgb 15.1 13.8 13.3 (11.4-16.0) gm/dL Hct 47.5 H 43.5 40.6 (34.0-46.0) % Coagulation 04/19/24 Range/Units 14:21 INR 1.1 (<1.2) Result Diagrams: 04/22/24 04:30 04/22/24 04:30 - Diagnostic results CT scan - cervical: report reviewed, image reviewed (CT scan of cervical spine has been reviewed. Evidence for cervical spondylosis as well as degenerative disc disease. Multiple levels of spurring) CT Scan - lumbar: report reviewed, image reviewed (CT scan of the thoracic or lumbar spine has been reviewed. There is evidence for spondylolisthesis of L4 and L5. Negative for any compression deformities. Positive for lumbar spondylosis and degenerative disc disease.) Assessment and Plan Assessment: 1. Grade 2 anterolisthesis of L4 on L5; lumbar spondylosis; degenerative disc disease; cervical spondylosis Plan: 1. Grade 2 anterolisthesis of L4 on L5; lumbar spondylosis; degenerative disc disease; cervical spondylosis -CT of cervical, thoracic and lumbar spine has b een reviewed. There is evidence of degenerative disc disease throughout the spine. Negative for any compression deformities. Positive for grade 2 anterolisthesis of L4 on L5. I did discuss the findings of the exam and imaging with my attending, Dr. Calle. At this time we are not recommending any emergent/urgent orthopedic surgical intervention. We recommend conservative measures with the use of pain medication and PT/OT. Patient may weight-bear as tolerated with walker and assistance. Patient may benefit from IV steroids during her stay in the hospital. We have ordered MRI of lumbar spine for further evaluation due to weakness in the bilateral lower extremities. We will continue to follow patient during stay in hospital. 2. Appreciate medical and neuro management 3. DVT prophylaxis -aspirin; heparin 4. GI prophylaxis -Protonix 5. Pain management -Tylenol 6. PT/OT -weightbearing as tolerated with walker and assistance 7. Encourage incentive spirometer use 8. Appreciate consult Time with Patient: Less than 30
--- NOTE | 2024-04-23 06:44 | P.PN ---
Subjective Progress Note Date: 04/23/24 Principal diagnosis: Grade 2 anterolisthesis of L4 on L5; lumbar spondylosis; degenerative disc disease; cervical spondylosis Patient was seen at bedside this morning lying in the semirecumbent position. Patient says she is still not having any back pain at this time. She says she is still having some weakness in the lower extremities. Patient denies any significant changes at this time. Objective - Vital Signs Vital signs: Vital Signs Temp 98.5 F 04/23/24 01:26 Pulse 67 04/23/24 01:26 Resp 20 04/23/24 01:26 BP 174/79 04/23/24 01:26 Pulse Ox 95 04/23/24 01:26 FiO2 Intake & Output 04/22/24 04/22/24 04/23/24 06:59 18:59 06:59 Output Total 011 987 9633 Balance -600 -750 -1300 Output: Urine 599 208 9980 Other: Voiding Method Diaper Diaper Diaper External Catheter External Catheter External Catheter # Bowel Movements 4 1 - Exam Inspection: Negative for any open fractures, significant erythema/ecchy mosis/open wounds. Sensation: Equal, symmetric, bilateral intact throughout the upper and lower ext remities on exam. Palpation: Nontender to palpation throughout spine on exam. Nontender to palpation throughout rest of exam. Range of motion: Patient does have good range of motion in bilateral wrist and elbows in flexion/extension. Patient is able to forward elevate right shoulder to about 115 degrees on her own. Patient can forward elevate left shoulder to about 125 degrees. Patient does have limited range of motion of the bilateral hips and knees in flexion/extension while resting in bed. Patient is able to flex the knees to about 60 degrees bilaterally while resting in bed. Patient lacks about 5 degrees full extension in the bilateral knees while resting in bed. Patient does have somewhat limited range of motion in bilateral ankles and dorsi flexion. Motor: 4+/5 rn imaging strength bilaterally. 4/5 in all other major motor groups in bilateral upper extremities. 4-/5 in resisted bilateral hip flexors extension and knee flexion so extension. 4/5 in EHL/FHL and bilateral ankle dorsi/plantarflexion. Neurovascular: Radial pulse intact, 2+ bilaterally. Cap refill under 3 seconds in digits of upper extremities. Special test: Negative logroll maneuver bilaterally. Negative Homans bilaterally. Negative clonus bilaterally. Negative Shantal bilaterally. - Labs CBC & Chem 7: 04/22/24 04:30 04/22/24 04:30 Labs: Abnormal Lab Results - Last 24 Hours (Table) 04/22/24 Range/Units 04:30 WBC 10.97 H (4.50-10.00) X 10*3/uL Immature Gran # 0.07 H (0.00-0.04) X 10*3/uL Neutrophils # 8.24 H (1.80-7.70) X 10*3/uL Eosinophils # 0.52 H (0.04-0.35) X 10*3/uL Microbiology - Last 24 Hours (Table) 04/19/24 17:38 Blood Culture - Preliminary Blood 04/19/24 17:53 Blood Culture - Preliminary Blood 04/20/24 11:30 Urine Culture - Final Urine,Voided Assessment and Plan Assessment: 1. Grade 2 anterolisthesis of L4 on L5; lumbar spondylosis; degenerative disc disease; cervical spondylosis Plan: 1. Grade 2 anterolisthesis of L4 on L5; lumbar spondylosis; degenerative disc disease; cervical spondylosis -CT of cervical, thoracic and lumbar spine has been reviewed. There is evidence of degenerative disc disease throughout the spine. Negative for any compression deformities. Positive for grade 2 anterolisthesis of L4 on L5. I did discuss the findings of the exam and imaging with my attending, Dr. Calle. At this time we are not recommending any emergent/urgent orthopedic surgical intervention. We recommend conservative measures with the use of pain medication and PT/OT. Patient may weight-bear as tolerated with walker and assistance. Patient may benefit from IV steroids during her stay in the hospital. We have ordered MRI of lumbar spine for fur ther evaluation due to weakness in the bilateral lower extremities. Neurology ordered MRI of brain and C-spine. We will await findings from lumbar spine MRI and cervical spine MRI before proceeding with any potential orthopedic intervention. We will continue to follow patient during stay in hospital. 2. Appreciate medical and neuro management 3. DVT prophylaxis -aspirin; heparin 4. GI prophylaxis -Protonix 5. Pain management -Tylenol 6. PT/OT -weightbearing as tolerated with walker and assistance 7. Encourage incentive spirometer use Time with Patient: Less than 30
--- NOTE | 2024-04-23 15:01 | MR ---
EXAMINATION TYPE: MR brain/cspine wo/w DATE OF EXAM: 04/23/2024 1:13 PM CLINICAL INDICATION:Female, 78 years old with history of recurrent falls and brisk reflex.; PHH, Recu rrent falls, brisk reflex COMPARISON: 04/21/2024 CT. TECHNIQUE: Multi planar, multi sequence imaging was performed through the brain including: T1, T2, Inversion rec overy, Diffusion weighted imaging, and gradient echo imaging. No gadolinium was given. Multi planar, multi sequence imaging was performed utilizing: T1-weighted, T2-weighted, and turbo inv ersion recovery imaging of the cervical spine. 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 Homogenously enhancing left lateral Dural-based 5 mm possible meningioma. The sosa-white junctions, ventricular system, basal cisterns appear unremar kable. Patchy areas of high T2 signal intensity are seen within the periventricular white matter. M idline structures show no abnormality. Diffusion-weighted imaging shows no evidence of restricted dif fusion. The susceptibility weighted images reveals multiple scattered foci of susceptibility limiting artifact. The bone marrow signal is within normal limits. Paranasal sinuses and mastoid air cells: No significant paranasal sinus disease. Visualized orbits: Orbital contents are intact. Motion limits evaluation of the cervical spine. Alignment: The cervical vertebral bodies have preserved heights. Alignment is within normal limits gi norm patient positioning. Bones: Scattered Modic endplate changes with osteophytes and disc space narrowing. Multilevel degener ative disc disease is noted and most pronounced at the C5-C7 vertebral levels. Cord: The spinal cord is unremarkable with regards to their signal intensity and morphology. Discs: Multilevel disc desiccation is present. C2-C3: No significant disc pathology. The spinal canal is patent. No neural foraminal stenosis. C3-C4: No significant disc pathology. The spinal canal is patent. Bilateral facet and uncovertebral joint arthropathy are present with mild bilateral neural foraminal stenosis. C4-C5: No significant disc pathology. The spinal canal is patent. No neural foraminal stenosis. C5-C6: No significant disc pathology. The spinal canal is patent. No neural foraminal stenosis. C6-C7: No significant disc pathology. The spinal canal is patent. No neural foraminal stenosis. C7-T1: No significant disc pathology. The spinal canal is patent. No neural foraminal stenosis. Other: Motion limited exam there is suspected large multinodular goiter in the left neck. IMPRESSION: 1. No evidence for disc herniation or significant spinal canal stenosis. 2. Mild to moderate disc degeneration with associated osteoarthritic changes. 3. No evidence of intra-axial mass or acute/subacute infarct. 4. Homogenously enhancing left lateral Dural-based 5 mm possible meningioma. 5. Nonspecific white matter changes, likely secondary to small vessel ischemic disease. 6. Scattered susceptibility artifact blooming artifact foci compatible with microhemorrhage, correla te for amyloid angiopathy versus scattered vascular malformations versus microhemorrhages with hemosi titus deposition. 7. Large left neck to lesser extent right neck thyroid multinodular goiter. Consider evaluation with thyroid ultrasound.
--- NOTE | 2024-04-23 15:28 | P.PN ---
Subjective Progress Note Date: 04/23/24 I am following-up with patient and states is doing about the same and denies any new neurological issues. Still pending MRI's. Objective - Vital Signs Vital signs: Vital Signs Temp 98.1 F 04/23/24 13:51 Pulse 61 04/23/24 13:51 Resp 16 04/23/24 13:51 BP 168/72 04/23/24 13:51 Pulse Ox 96 04/23/24 13:51 FiO2 Intake & Output 04/22/24 04/23/24 04/23/24 18:59 06:59 18:59 Intake Total 240 Output Total 750 1300 Balance -750 -1300 240 Intake: Oral 240 Output: Urine 750 1300 Other: Voiding Method Diaper Diaper Diaper External Catheter External Catheter External Catheter # Bowel Movements 4 1 - Exam GENERAL: The patient is lying in bed and is not in acute distress. HENT: Supple neck. NEUROLOGICAL: Higher mental function: The patient is awake, alert, oriented to self, place and time. Patient is following commands. No aphasia and no neglect. Cranial nerves: The pupils are round, equal and reactive to light and accomm odation. Visual gaviria are full to confrontation throughout. Extraocular movement is intact no nystagmus is noted. Facial sensation is normal to touch throughout. The facial strength is normal throughout. Hearing is mildly ecreased bilaterally to hand rub. Tongue is midline and moved init-wy-ckee without any difficulty. No dysarthria is noted. Shoulder shrug is normal bilaterally. Motor: The strength is 5 over 5 throughout. uppers and having weakness in lowers with some pain, in which proximally is 1-2 while ankles are 3. Normal tone and bulk. Cerebellum: Normal finger to nose bilaterally. Sensation: Sensation is normal to touch throughout. Reflexes (right/left): Biceps 3+/3+; triceps 3+/3+; brachioradialis 3+/3+; patellar deferred since once attempted pulled back and refused; ankles 2+/2+. Plantars: right is mute and left is upgoing at baseline but later was mute. Some of the workup during this hospital visit consisted of: TSH: 1.64 Vitamin B12 326 Urinalysis seems possible suggestive of underlying urinary tract infection CT of the head is reported as no acute intracranial process. Remote lacunar injuries along with nonspecific white matter changes likely secondary to chronic microangiopathy. Reviewed CT and I agree patient has chronic white matter changes. Seems the patient has bilateral lacunar stroke over the basal ganglia Spine x-ray and is reported as cervical spine of moderate spondylitic changes especially C5-C6 level degenerative grade 1 anterior lithiasis C3-C4 and C4-C5. The thoracic shows osteopenia. No vertebral or compression collapse or malalignment. Lumbar shows osteopenia. Advanced hypertrophic facet arthroplasty mild to lower lumbar spine with a grade 2 anterior lithiasis at L4- L5. Grade 1 retrolisthesis L1-L4 level. Baastrup disease. CT cervical spine: No evidence of cervical spine fracture. Mild to moderate degenerative disc disease. CT thoracic/lumbar: No evidence of fracture of the thoracic or lumbar spine. No evidence for significant spinal canal or neural stenosis. Grade 2 anterolisthesis of L4 and L5 without spondylosis. Mild to moderate multilevel degeneration changes of spine. - Labs CBC & Chem 7: 04/22/24 04:30 04/22/24 04:30 Labs: Microbiology - Last 24 Hours (Table) 04/19/24 17:38 Blood Culture - Preliminary Blood 04/19/24 17:53 Blood Culture - Preliminary Blood Assessment and Plan Assessment: This is a 78-year-old woman who presents emergency department because for the past several days she is having leg weakness with loss of balance and had falls. On examination patient has bilateral lower extremity weakness as well as brisk reflex predominantly in the uppers. Bilateral lower extremity weakness with falls in the last 3 weeks with unsteady gait. Examination patient had bilateral lower extremity weakness and brisk reflexes in the uppers. Rule out cervical/thoracic myelopathy Or underlying acute UTI Low normal vitamin B12 (326) History of stroke in the past Underlying history of hypertension Hyperlipidemia Plan: MRI Brain and cervical spine pending. Orthopedic surgery team and they ordered MRI lumbar. PT and OT are consulted I started the patient on vitamin B12 500mcg daily. Patient is on home dose of aspirin 81 mg daily and is on Lipitor 10 mg nightly. Will defer the rest of the medical management to primary and other specialist I discussed with the patient and her nurse. Time with Patient: Less than 30
[2024-04-23] MEDS: CYANOCOBALAMIN 500 MCG TAB PO SCH (16:34)
--- NOTE | 2024-04-24 08:49 | P.PN ---
Subjective Progress Note Date: 04/24/24 Principal diagnosis: Grade 2 anterolisthesis of L4 on L5; lumbar spondylosis; degenerative disc disease; cervical spondylosis Patient was seen at bedside this morning lying in the semirecumbent position. Patient says she is still not having any back pain at this time. She says she is still having some weakness in the lower extremities. Patient denies any significant changes at this time. Objective - Vital Signs Vital signs: Vital Signs Temp 98.0 F 04/24/24 07:06 Pulse 58 L 04/24/24 07:06 Resp 16 04/24/24 07:06 BP 176/65 04/24/24 07:06 Pulse Ox 95 04/24/24 07:06 FiO2 Intake & Output 04/23/24 04/24/24 04/24/24 18:59 06:59 18:59 Intake Total 838 Output Total 1000 300 Balance -162 -300 Intake: Oral 838 Output: Urine 1000 300 Other: Voiding Method Diaper Diaper External Catheter External Catheter - Exam Inspection: Negative for any open fractures, significant erythema/ecchymosis/open wounds. Sensation: Equal, symmetric, bilateral intact throughout the upper and lower extremities on exam. Palpation: Nontender to palpation throughout spine on exam. Nontender to palpation throughout rest of exam. Range of motion: Patient does have good range of motion in bilateral wrist and elbows in flexion/extension. Patient is able to forward elevate right shoulder to about 115 degrees on her own. Patient can forward elevate left shoulder to about 125 degrees. Patient does have limited range of motion of the bilateral hips and knees in flexion/extension while resting in bed. Patient is able to flex the knees to about 60 degrees bilaterally while resting in bed. Patient lacks about 5 degrees full extension in the bilateral knees while resting in bed. Patient does have somewhat limited range of motion in bilateral ankles and dorsi flexion. 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 4/5 in all other major motor groups in bilateral upper extremities. 4-/5 in resisted bilateral hip flexors extension and knee flexion so extension. 4/5 in EHL/FHL and bilateral ankle dorsi/plant arflexion. Neurovascular: Radial pulse intact, 2+ bilaterally. Cap refill under 3 seconds in digits of upper extremities. Special test: Negative logroll maneuver bilaterally. Negative Homans bilat erally. Negative clonus bilaterally. Negative Shantal bilaterally. - Labs CBC & Chem 7: 04/22/24 04:30 04/22/24 04:30 Labs: Microbiology - Last 24 Hours (Table) 04/19/24 17:38 Blood Culture - Preliminary Blood 04/19/24 17:53 Blood Culture - Preliminary Blood Assessment and Plan Assessment: 1. Grade 2 anterolisthesis of L4 on L5; lumbar spondylosis; degenerative disc disease; cervical spondylosis Plan: 1. Grade 2 anterolisthesis of L4 on L5; lumbar spondylosis; degenerative disc disease; cervical spondylosis -CT of cervical, thoracic and lumbar spine has been reviewed. There is evidence of degenerative disc disease throughout the sp ine. Negative for any compression deformities. Positive for grade 2 anterolisthesis of L4 on L5. I did discuss the findings of the exam and imaging with my attending, Dr. Calle. At this time we are not recommending any emergent/urgent orthopedic surgical intervention. We recommend conservative measures with the use of pain medication and PT/OT. Patient may weight-bear as tolerated with walker and assistance. Patient may benefit from IV steroids during her stay in the hospital. We have ordered MRI of lumbar spine for further evaluation due to weakness in the bilateral lower extremities. Neurology ordered MRI of brain and C-spine. MRI of cervical spine does show some mild bilateral neuroforaminal stenosis at C3-C4. We will await findings from lumbar spine MRI before proceeding with any potential orthopedic intervention. We will continue to follow patient during stay in hospital. 2. Appreciate medical and neuro management 3. DVT prophylaxis -aspirin; heparin 4. GI prophylaxis -Protonix 5. Pain management -Tylenol 6. PT/OT -weightbearing as tolerated with walker and assistance 7. Encourage incentive spirometer use Time with Patient: Less than 30
--- NOTE | 2024-04-24 08:51 | P.PN ---
Subjective Progress Note Date: 04/22/24 78-year-old female who presents to the emergency department today because she was unable to ambulate this morning because both of her legs are weak. According to the son in the room she was able to walk yesterday but unable to walk today. Patient also had a fall on Thursday and landed on her bottom she is able to move both legs and denies any significant pain though she states her right hip hurts a little. Patient according to the son was a little confused this morning but currently she seems to be at her baseline according to the son. Patient has no headache patient denies any focal numbness or weakness. Patient Nuys any chest pain denies any difficulty breathing or shortness of breath. Patient has any abdominal pain patient has nausea vomiting diarrhea. Urinalysis seems possible suggestive of underlying urinary tract infection CT of the head is reported as no acute intracranial process. Remote lacunar injuries along with nonspecific white matter changes likely secondary to chronic microangiopathy. Reviewed CT and I agree patient has chronic white matter changes. Seems the patient has bilateral lacunar stroke over the basal ganglia Spine x-ray and is reported as cervical spine of moderate spondylitic changes especially C5-C6 level degenerative grade 1 anterior lithiasis C3-C4 and C4-C5. The thoracic shows osteopenia. No vertebral or compression collapse or malalignment. Lumbar shows osteopenia. Advanced hypertrophic facet arthroplasty mild to lower lumbar spine with a grade 2 anterior lithiasis at L4- L5. Grade 1 retrolisthesis L1-L4 level. Baastrup disease. Objective - Vital Signs Vital signs: Vital Signs Temp 98.4 F 04/22/24 13:03 Pulse 70 04/22/24 13:03 Resp 17 04/22/24 13:03 BP 141/78 04/22/24 13:03 Pulse Ox 94 L 04/22/24 13:03 FiO2 Intake & Output 04/21/24 04/22/24 04/22/24 18:59 06:59 18:59 Intake Total 480 Output Total 1200 600 Balance -720 -600 Intake: Oral 480 Output: Urine 1200 600 Other: Voiding Method Diaper Diaper Diaper External Catheter External Catheter External Catheter - Exam GENERAL: Patient is well-developed and well-nourished. Patient is nontoxic and well- hydrated and is in mild distress. Neck is soft and supple. No significant lymphadenopathy is noted. Oropharynx is clear. Moist mucous membranes. Neck has full range of motion without eliciting any pain. The sclera were anicteric and conjunctiva were pink and moist. Extraocular movements were intact and pupils were equal round and reactive to light. Eyelids were unremarkable. PULMONARY: Unlabored respirations. Good breath sounds bilaterally. No audible rales rhonchi or wheezing was noted. CARDIOVASCULAR: There is a regular rate and rhythm without any murmurs gallops or rubs. ABDOMEN: Soft and nontender with normal bowel sounds. No palpable organomegaly was noted. There is no palpable pulsatile mass. NEUROLOGIC; Patient is alert and oriented x3. Cranial nerves II through XII are grossly intact. Motor and sensory are also intact. Normal speech, volume and content. Symmetrical smile. NIH is 0 MUSCULOSKELETAL: Normal extremities with adequate strength and full range of m otion. Mild posterior right hip pain on palpation but full range of motion - Labs CBC & Chem 7: 04/22/24 04:30 04/22/24 04:30 Labs: Abnormal Lab Results - Last 24 Hours (Table) 04/22/24 Range/Units 04:30 WBC 10.97 H (4.50-10.00) X 10*3/uL Immature Gran # 0.07 H (0.00-0.04) X 10*3/uL Neutrophils # 8.24 H (1.80-7.70) X 10*3/uL Eosinophils # 0.52 H (0.04-0.35) X 10*3/uL Microbiology - Last 24 Hours (Table) 04/20/24 11:30 Urine Culture - Final Urine,Voided 04/19/24 17:38 Blood Culture - Preliminary Blood 04/19/24 17:53 Blood Culture - Preliminary Blood Assessment and Plan Assessment: 1. Generalized weakness/recurrent falls 2. UTI 3. Hypertension 4. Hyperlipidemia 5. History of TIA 78-year-old female patient presenting to the hospital with multiple complex medical issues; patient was initiated on broad-spectrum IV antibiotics -CT of the brain and lumbar spine completed in ED was unremarkable; patient has been evaluated by neurology and is recommended MRI of the brain and cervical spine -- We will continue with current home medications -- PT OT consulted; await recommendations
--- NOTE | 2024-04-24 08:53 | P.PN ---
Subjective Progress Note Date: 04/23/24 78-year-old female who presents to the emergency department today because she was unable to ambulate this morning because both of her legs are weak. According to the son in the room she was able to walk yesterday but unable to walk today. Patient also had a fall on Thursday and landed on her bottom she is able to move both legs and denies any significant pain though she states her right hip hurts a little. Patient according to the son was a little confused this morning but currently she seems to be at her baseline according to the son. Patient has no headache patient denies any focal numbness or weakness. Patient Nuys any chest pain denies any difficulty breathing or shortness of breath. Patient has any abdominal pain patient has nausea vomiting diarrhea. Urinalysis seems possible suggestive of underlying urinary tract infection CT of the head is reported as no acute intracranial process. Remote lacunar injuries along with nonspecific white matter changes likely secondary to chronic microangiopathy. Reviewed CT and I agree patient has chronic white matter changes. Seems the patient has bilateral lacunar stroke over the basal ganglia Spine x-ray and is reported as cervical spine of moderate spondylitic changes especially C5-C6 level degenerative grade 1 anterior lithiasis C3-C4 and C4-C5. The thoracic shows osteopenia. No vertebral or compression collapse or malalignment. Lumbar shows osteopenia. Advanced hypertrophic facet arthroplasty mild to lower lumbar spine with a grade 2 anterior lithiasis at L4- L5. Grade 1 retrolisthesis L1-L4 level. Baastrup disease. 24-hour interval change 04/23/2024 Patient is seen and evaluated in room at bedside; reports MRI is completed and results are pending Vital signs are reviewed and remained stable MRI Brain and cervical spine pending. Orthopedic surgery team and they ordered MRI lumbar. PT and OT are consulted I started the patient on vitamin B12 500mcg daily. Patient is on home dose of aspirin 81 mg daily and is on Lipitor 10 mg nightly. -- Neurology is on board; appreciate input; further recommendations once MRI is completed Objective - Vital Signs Vital signs: Vital Signs Temp 98.1 F 04/23/24 13:51 Pulse 61 04/23/24 13:51 Resp 16 04/23/24 13:51 BP 168/72 04/23/24 13:51 Pulse Ox 96 04/23/24 13:51 FiO2 Intake & Output 04/22/24 04/23/24 04/23/24 18:59 06:59 18:59 Intake Total 240 Output Total 750 1300 Balance -750 -1300 240 Intake: Oral 240 Output: Urine 750 1300 Other: Voiding Method Diaper Diaper Diaper External Catheter External Catheter External Catheter # Bowel Movements 4 1 - Exam GENERAL: Patient is well-developed and well-nourished. Patient is nontoxic and well- hydrated and is in mild distress. Neck is soft and supple. No significant lymphadenopathy is noted. Oropharynx is clear. Moist mucous membranes. Neck has full range of motion without eliciting any pain. The sclera were anicteric and conjunctiva were pink and moist. Extraocular movements were intact and pupils were equal round and reactive to light. Eyelids were unremarkable. PULMONARY: Unlabored respirations. Good breath sounds bilaterally. No audible rales rhonchi or wheezing was noted. CARDIOVASCULAR: There is a regular rate and rhythm without any murmurs gallops or rubs. ABDOMEN: Soft and nontender with normal bowel sounds. No palpable organomegaly was noted. There is no palpable pulsatile mass. NEUROLOGIC; Patient is alert and oriented x3. Cranial nerves II through XII are grossly intact. Motor and sensory are also intact. Normal speech, volume and content. Symmetrical smile. NIH is 0 MUSCULOSKELETAL: Normal extremities with adequate strength and full range of motion. Mild posterior right hip pain on palpation but full range of motion - Labs CBC & Chem 7: 04/22/24 04:30 04/22/24 04:30 Labs: Microbiology - Last 24 Hours (Table) 04/19/24 17:38 Blood Culture - Preliminary Blood 04/19/24 17:53 Blood Culture - Preliminary Blood Assessment and Plan Assessment: 1. Generalized weakness/recurrent falls 2. UTI 3. Hypertension 4. Hyperlipidemia 5. History of TIA 78-year-old female patient presenting to the hospital with multiple complex medical issues; patient was initiated on broad-spectrum IV antibiotics -CT of the brain and lumbar spine completed in ED was unremarkable; patient has been evaluated by neurology and is recommended MRI of the brain and cervical spine -- We will continue with current home medications -- PT OT consulted; await recommendations
--- NOTE | 2024-04-24 14:29 | P.PN ---
Subjective Progress Note Date: 04/24/24 I am following-up with patient and feels about the same. Still pending MRI Lumbar spine. Objective - Vital Signs Vital signs: Vital Signs Temp 97.7 F 04/24/24 13:25 Pulse 57 L 04/24/24 13:25 Resp 16 04/24/24 13:25 BP 124/62 04/24/24 13:25 Pulse Ox 95 04/24/24 13:25 FiO2 Intake & Output 04/23/24 04/24/24 04/24/24 18:59 06:59 18:59 Intake Total 838 476 Output Total 1000 300 Balance -162 -300 476 Intake: Oral 838 476 Output: Urine 1000 300 Other: Voiding Method Diaper Diaper Diaper External Catheter External Catheter External Catheter - Exam GENERAL: The patient is lying in bed and is not in acute distress. HENT: Supple neck. NEUROLOGICAL: Higher mental function: The patient is awake, alert, oriented to self, place and time. Patient is following commands. No aphasia and no neglect. Cranial nerves: The pupils are round, equal and reactive to light and accommodation. Visual gaviria are full to confrontation throughout. Extraocular movement is intact no nystagmus is noted. Facial sensation is normal to touch throughout. The facial strength is normal throughout. Hearing is mildly ecreased bilaterally to hand rub. Tongue is midline and moved [id number] without any difficulty. No dysarthria is noted. Shoulder shrug is normal bilaterally. Motor: The strength is 5 over 5 throughout. uppers and having weakness in lowers with some pain, in which proximally is 1-2 while ankles are 3. Normal tone and bulk. Cerebellum: Normal finger to nose bilaterally. Sensation: Sensation is normal to touch throughout. Reflexes (right/left): Biceps 3+/3+; triceps 3+/3+; brachioradialis 3+/3+; patellar deferred since once attempted pulled back and refused; ankles 2+/2+. Plantars: right is mute and left is upgoing at baseline but later was mute. Some of the workup during this hospital visit consisted of: TSH: 1.64 Vitamin B12 326 Urinalysis seems possible suggestive of underlying urinary tract infection CT of the head is reported as no acute intracranial process. Remote lacunar injuries along with nonspecific white matter changes likely secondary to chronic microangiopathy. Reviewed CT and I agree patient has chronic white matter changes. Seems the patient has bilateral lacunar stroke over the basal ganglia Spine x-ray and is reported as cervical spine of moderate spondylitic changes especially C5-C6 level degenerative grade 1 anterior lithiasis C3-C4 and C4-C5. The thoracic shows osteopenia. No vertebral or compression collapse or malalignment. Lumbar shows osteopenia. Advanced hypertrophic facet arthroplasty mild to lower lumbar spine with a grade 2 anterior lithiasis at L4- L5. Grade 1 retrolisthesis L1-L4 level. Baastrup disease. CT cervical spine: No evidence of cervical spine fracture. Mild to moderate degenerative disc disease. CT thoracic/lumbar: No evidence of fracture of the thoracic or lumbar spine. No evidence for significant spinal canal or neural stenosis. Grade 2 anterolisthesis of L4 and L5 without spondylosis. Mild to moderate multilevel degeneration changes of spine. MRI brain and cervical: It is reported as no evidence for disc herniation or significant spinal canal stenosis. Mild to moderate disc degeneration with associated osteoarthritic changes. No evidence of of intra-axial mass or acute/subacute infarct. Homogeneously enhancing left lateral dural base 5 mm posterior meningioma. Nonspecific white matter changes likely secondary due to small vessel ischemic changes. Scattered susceptibility artifact blooming artifact foci compatible with microhemorrhage. Correlate for amyloid angiopathy versus scattered vascular malformation versus microhemorrhage with humeral syndrome and deposition. Large left neck total lesser extent right thyroid with multinodular goiter. I personally reviewed the MRI Brain and agree there is no acute or subacute ischemia. There is no contributing to the patient's symptoms. Regarding the cervical spine I felt there is faint hyperintense lesion on the sagittal T1 over the C7-T1 and for Gadolidium there is artifact but felt C6-C7 is close to spinal cord but no enhancement. - Labs CBC & Chem 7: 04/22/24 04:30 04/22/24 04:30 Assessment and Plan Assessment: This is a 78-year-old woman who presents emergency department because for the past several days she is having leg weakness with loss of balance and had falls. On examination patient has bilateral lower extremity weakness as well as brisk reflex predominantly in the uppers. Bilateral lower extremity weakness with falls in the last 3 weeks with unsteady gait. Examination patient had bilateral lower extremity weakness and brisk reflexes in the uppers. Rule out cervical myelopathy. On MRI Cervical spine felt there is I felt faint hyperintense lesion on the sagittal T1 over the C7-T1 and for Gadolidium there is artifact but felt C6-C7 is close to spinal cord but no enhancement. While MRI Brain no acute subacute stroke or mass that is responsible for symptoms. Low normal vitamin B12 (326) History of stroke in the past Underlying history of hypertension Hyperlipidemia Plan: * MRI brain and cervical: It is reported as no evidence for disc herniation or significant spinal canal stenosis. Mild to moderate disc degeneration with associated osteoarthritic changes. No evidence of of intra-axial mass or acute/subacute infarct. Homogeneously enhancing left lateral dural base 5 mm posterior meningioma. Nonspecific white matter changes likely secondary due to small vessel ischemic changes. Scattered susceptibility artifact blooming artifact foci compatible with microhemorrhage. Correlate for amyloid angiopat hy versus scattered vascular malformation versus microhemorrhage with humeral syndrome and deposition. Large left neck total lesser extent right thyroid with multinodular goiter. I personally reviewed the MRI Brain and agree there is no acute or subacute ischemia. There is no contributing to the patient's symptoms. Regarding the cervical spine I felt there is faint hyperintense le omid on the sagittal T1 over the C7-T1 and for Gadolidium there is artifact but felt C6-C7 is close to spinal cord but no enhancement. * Will attempt to speak with Orthopedic surgery team regarding MRI C-spine result and there opinion. * Orthopedic surgery team and they ordered MRI lumbar. * PT and OT are consulted * Continue vitamin B12 500mcg daily. * Patient is on home dose of aspirin 81 mg daily and is on Lipitor 10 mg nightly. * Will defer the rest of the medical management to primary and other specialist I discussed with the patient and her nurse. Dr. Esqueda will resume neurology service tomorrow A.M. Time with Patient: Less than 30
--- NOTE | 2024-04-25 05:39 | P.PN ---
Subjective Progress Note Date: 04/24/24 78-year-old female who presents to the emergency department today because she was unable to ambulate this morning because both of her legs are weak. According to the son in the room she was able to walk yesterday but unable to walk today. Patient also had a fall on Thursday and landed on her bottom she is able to move both legs and denies any significant pain though she states her right hip hurts a little. Patient according to the son was a little confused this morning but currently she seems to be at her baseline according to the son. Patient has no headache patient denies any focal numbness or weakness. Patient Nuys any chest pain denies any difficulty breathing or shortness of breath. Patient has any abdominal pain patient has nausea vomiting diarrhea. Urinalysis seems possible suggestive of underlying urinary tract infection CT of the head is reported as no acute intracranial process. Remote lacunar injuries along with nonspecific white matter changes likely secondary to chronic microangiopathy. Reviewed CT and I agree patient has chronic white matter changes. Seems the patient has bilateral lacunar stroke over the basal ganglia Spine x-ray and is reported as cervical spine of moderate spondylitic changes especially C5-C6 level degenerative grade 1 anterior lithiasis C3-C4 and C4-C5. The thoracic shows osteopenia. No vertebral or compression collapse or malalignment. Lumbar shows osteopenia. Advanced hypertrophic facet arthroplasty mild to lower lumbar spine with a grade 2 anterior lithiasis at L4- L5. Grade 1 retrolisthesis L1-L4 level. Baastrup disease. 24-hour interval change 04/23/2024 Patient is seen and evaluated in room at bedside; reports MRI is completed and results are pending Vital signs are reviewed and remained stable MRI Brain and cervical spine pending. Orthopedic surgery team and they ordered MRI lumbar. PT and OT are consulted I started the patient on vitamin B12 500mcg daily. Patient is on home dose of aspirin 81 mg daily and is on Lipitor 10 mg nightly. -- Neurology is on board; appreciate input; further recommendations once MRI is completed 04/24/2024 Patient is seen and evaluated in room at bedside; no specific complaints are reported Vital signs are reviewed and remained stable Blood work is reviewed; no acute abnormality -Patient admitted with generalized weakness and falls -MRI of the brain and cervical spine was done results are pending -Neurology on board await MRI completion and further recommendation Objective - Vital Signs Vital signs: Vital Signs Temp 98.0 F 04/24/24 07:06 Pulse 58 L 04/24/24 07:06 Resp 16 04/24/24 07:06 BP 176/65 04/24/24 07:06 Pulse Ox 95 04/24/24 07:06 FiO2 Intake & Output 04/23/24 04/24/24 04/24/24 18:59 06:59 18:59 Intake Total 838 Output Total 1000 300 Balance -162 -300 Intake: Oral 838 Output: Urine 1000 300 Other: Voiding Method Diaper Diaper External Catheter External Catheter - Exam GENERAL: Patient is well-developed and well-nourished. Patient is nontoxic and well- hydrated and is in mild distress. Neck is soft and supple. No significant lymphadenopathy is noted. Oropharynx is clear. Moist mucous membranes. Neck has full range of motion without eliciting any pain. The sclera were anicteric and conjunctiva were pink and moist. Extraocular movements were intact and pupils were equal round and reactive to light. Eyelids were unremarkable. PULMONARY: Unlabored respirations. Good breath sounds bilaterally. No audible rales rhonchi or wheezing was noted. CARDIOVASCULAR: There is a regular rate and rhythm without any murmurs gallops or rubs. ABDOMEN: Soft and nontender with normal bowel sounds. No palpable organomegaly was noted. There is no palpable pulsatile mass. NEUROLOGIC; Patient is alert and oriented x3. Cranial nerves II through XII are grossly intact. Motor and sensory are also intact. Normal speech, volume and content. Symmetrical smile. NIH is 0 MUSCULOSKELETAL: Normal extremities with adequate strength and full range of motion. Mild posterior right hip pain on palpation but full range of motion - Labs CBC & Chem 7: 04/22/24 04:30 04/22/24 04:30 Labs: Microbiology - Last 24 Hours (Table) 04/19/24 17:38 Blood Culture - Preliminary Blood 04/19/24 17:53 Blood Culture - Preliminary Blood Assessment and Plan Assessment: 1. Generalized weakness/recurrent falls 2. UTI 3. Hypertension 4. Hyperlipidemia 5. History of TIA 78-year-old female patient presenting to the hospital with multiple complex medical issues; patient was initiated on broad-spectrum IV antibiotics -CT of the brain and lumbar spine completed in ED was unremarkable; patient has been evaluated by neurology and is recommended MRI of the brain and cervical spine -- We will continue with current home medications -- PT OT consulted; await recommendations
--- NOTE | 2024-04-25 08:44 | P.PN ---
Subjective Progress Note Date: 04/25/24 Principal diagnosis: 1. Cervical spondylosis 2. Lumbar spondylosis 3. Grade 2 anterolisthesis of L4 on L5 4. Degenerative disc disease Patient seen and examined this morning. Patient is resting comfortably in bed. Patient denies any back pain or radiculopathy, numbness or tingling into her lower extremities. She does report that she has not been up in the past 24 hours. Nurse insurance assistant at bedside performing vitals states that patient is on bedrest for unknown reasons. PT/OT is consulted for this patient. Patient may be up and about as tolerated. Informed patient that we are awaiting MRI of the lumbar spine. No acute concerns at this time. Objective - Vital Signs Vital signs: Vital Signs Temp 98.4 F 04/25/24 01:49 Pulse 52 L 04/25/24 01:49 Resp 16 04/25/24 01:49 BP 132/65 04/25/24 01:49 Pulse Ox 96 04/25/24 01:49 FiO2 Intake & Output 04/24/24 04/25/24 04/25/24 18:59 06:59 18:59 Intake Total 716 Output Total 600 450 Balance 116 -450 Intake: Oral 716 Output: Urine 600 450 Other: Voiding Method Diaper Diaper External Catheter External Catheter # Voids 1 # Bowel Movements 1 - Exam Physical Examination General: The patient is awake and alert, in no acute distress Skin: Skin is warm and dry with no obvious rashes or lesions. Eye: Pupils are equal, round and reactive to light, extra-ocular movements are intact; there is normal conjunctiva bilaterally. Neck: The neck is supple, there is no tenderness and ROM intact. Gastrointestinal: Soft, non-distended, non-tender abdomen. Back: There is no tenderness to palpation in the midline, paralumbar, parathoracic or buttocks region. There is no obvious deformity . Musculoskeletal: FROM. Muscle strength in all major muscle groups of bilateral upper extremities 5/5, bilateral lower extremities 4/5. Neurological: CN 2-12 intact. There are no obvious motor or sensory deficits. Movement and coordination equal and intact. Sensory exam to light touch intact C5-T1 and intact from L2-S1. Reflexes 2/4 in bilateral upper and lower extremities. Negative Hoffmans, babinski, and clonus signs. Psychiatric: Cooperative, appropriate mood & affect, normal judgment. - Labs CBC & Chem 7: 04/22/24 04:30 04/22/24 04:30 Labs: Microbiology - Last 24 Hours (Table) 04/19/24 17:38 Blood Culture - Final Blood 04/19/24 17:53 Blood Culture - Final Blood Assessment and Plan Assessment: 1. Cervical spondylosis 2. Lumbar spondylosis 3. Grade 2 anterolisthesis of L4 on L5 4. Degenerative disc disease Plan: - Awaiting MRI of the Lumbar Spine 2. Appreciate medical and neuro management 3. DVT prophylaxis -aspirin; heparin 4. GI prophylaxis -Protonix 5. Pain management -Tylenol 6. PT/OT -weightbearing as tolerated with walker and assistance 7. Encourage incentive spirometer use I reviewed and discussed this case with my attending Dr. Calle, whom has reviewed this chart and films and is in agreement with assessment and plan of care as outlined above. I have personally seen and examined the patient, performed the documentation and the assessment and plan as written. Number of minutes spent on the visit: 20m
--- NOTE | 2024-04-25 21:44 | P.PN ---
Subjective Progress Note Date: 04/25/24 Patient is evaluated in follow up on the medical floor currently sitting up in the chair. She is reporting intense pain to the lower back and currently pending Lumbar MRI which is being scheduled. Neurology following. Mentation has improved. Physical Examination GENERAL: Patient is well-developed and well-nourished. Patient is nontoxic and well- hydrated and is in mild distress. Neck is soft and supple. No significant lymphadenopathy is noted. Oropharynx is clear. Moist mucous membranes. Neck has full range of motion without eliciting any pain. The sclera were anicteric and conjunctiva were pink and moist. Extraocular movements were intact and pupils were equal round and reactive to light. Eyelids were unremarkable. PULMONARY: Unlabored respirations. Good breath sounds bilaterally. No audible rales rhonchi or wheezing was noted. CARDIOVASCULAR: There is a regular rate and rhythm without any murmurs gallops or rubs. ABDOMEN: Soft and nontender with normal bowel sounds. No palpable organomegaly was noted. There is no palpable pulsatile mass. NEUROLOGIC; Patient is alert and oriented x3. Cranial nerves II through XII are grossly intact. Motor and sensory are also intact. Normal speech, volume and content. Symmetrical smile. NIH is 0 MUSCULOSKELETAL: Normal extremities with adequate strength and full range of motion. Mild posterior right hip pain on palpation but full range of motion Assessment and Plan -Generalized weakness/recurrent falls -Grade 2 anterolisthesis of L4 on L5 with lumbar spondylosis pending MRI of the lumbar spine -Concern for microhemorrhage on brain MRI correlate for amyloid angiopathy vs. scattered vascular malformation vs. microhemorrhages with hemosiderin deposition. -Abnormal UA does not appear to be an acute UTI as patients urine culture is normal. -Hypertension -Hyperlipidemia -History of TIA -Multinodular thyroid goiter left greater than right recommending thyroid ultrasound outpatient follow up. GI prophylaxis DVT prophylaxis Plan Pending lumbar MRI Neurology follow up regarding brain MRI findings. Concern for possible faint hyperintense lesion on the sagittal T1 per neurology. Continue tylenol PRN Repeat labs in the AM PT/OT consultation The impression and plan of care has been dictated by Katherine Collado Nurse Practitioner as directed. Dr. Yolanda MD I have performed a history and physical examination and medical decision making of this patient, discussed the same with the dictator, and agree with the dictators assessment and plan as written, documented as a scribe. Based on total visit time, I have performed more than 50% of this visit. Objective - Vital Signs Vital signs: Vital Signs Temp 98.2 F 04/25/24 19:43 Pulse 60 04/25/24 19:43 Resp 16 04/25/24 19:43 BP 132/63 04/25/24 19:43 Pulse Ox 95 04/25/24 19:43 FiO2 Intake & Output 04/25/24 04/25/24 04/26/24 06:59 18:59 06:59 Intake Total 868 Output Total 450 900 Balance -450 -32 Intake: Intake, IV Titration 50 Amount cefTRIAXone 2 gm In 50 Sodium Chloride 0.9% 50 ml @ 100 mls/hr IV[facility] Q[facility] Rx#:[id number] Oral 818 Output: Urine 450 900 Other: Voiding Method Diaper Diaper External Catheter External Catheter # Voids 1 # Bowel Movements 1 - Labs CBC & Chem 7: 04/22/24 04:30 04/22/24 04:30 Labs: Microbiology - Last 24 Hours (Table) 04/19/24 17:38 Blood Culture - Final Blood 04/19/24 17:53 Blood Culture - Final Blood Assessment and Plan Time with Patient: Less than 30
--- NOTE | 2024-04-26 09:49 | P.PN ---
Subjective Progress Note Date: 04/25/24 Patient was initially seen by Dr. Shola Leija. Please refer to his note for details. Patient is a 78-year-old female with leg weakness and fall for last [address] Leija felt MRI of the cervical spine was abnormal. She does have brisk reflexes. Orthopedic ordered MRI of the lumbar spine. Patient at present laying comfortably the bed. I spoke to patient's son on the phone as well, who mentions that on the day prior to arrival, patient fell on the buttock on one day. She was able to get up and went to bed. When she woke up next morning, she could not move her legs, therefore she was brought to the hospital. Patient does have history of chronic incontinence, and for last couple years have been using depends. She has no issues with bowel control. Patient states that her bowel or bladder control has not got worse since this fall. She denies any numbness in the legs, just weakness. Some of the workup during this hospital visit consisted of: TSH: 1.64 Vitamin B12 326 Urinalysis seems possible suggestive of underlying urinary tract infection CT of the head is reported as no acute intracranial process. Remote lacunar injuries along with nonspecific white matter changes likely secondary to chronic microangiopathy. Reviewed CT and I agree patient has chronic white matter changes. Seems the patient has bilateral lacunar stroke over the basal ganglia Spine x-ray and is reported as cervical spine of moderate spondylitic changes especially C5-C6 level degenerative grade 1 anterior lithiasis C3-C4 and C4-C5. The thoracic shows osteopenia. No vertebral or compression collapse or malalignment. Lumbar shows osteopenia. Advanced hypertrophic facet arthroplasty mild to lower lumbar spine with a grade 2 anterior lithiasis at L4- L5. Grade 1 retrolisthesis L1-L4 level. [place] disease. CT cervical spine: No evidence of cervical spine fracture. Mild to moderate degenerative disc disease. CT thoracic/lumbar: No evidence of fracture of the thoracic or lumbar spine. No evidence for significant spinal canal or neural stenosis. Grade 2 anteroli sthesis of L4 and L5 without spondylosis. Mild to moderate multilevel degeneration changes of spine. MRI brain and cervical: It is reported as no evidence for disc herniation or significant spinal canal stenosis. Mild to moderate disc degeneration with associated osteoarthritic changes. No evidence of of intra-axial mass or acute/subacute infarct. Homogeneously enhancing left lateral dural base 5 mm posterior meningioma. Nonspecific white matter changes likely secondary due to small vessel ischemic changes. Scattered susceptibility artifact blooming artifact foci compatible with microhemorrhage. Correlate for amyloid angiopathy versus scattered vascular malformation versus microhemorrhage with humeral syndrome and deposition. Large left neck total lesser extent right thyroid with multinodular goiter. I personally reviewed the MRI Brain and agree there is no acute or subacute ischemia. There is no contributing to the patient's symptoms. Regarding the cervical spine I felt there is faint hyperintense lesion on the sagittal T1 over the C7-T1 and for Gadolidium there is artifact but felt C6-C7 is close to spinal cord but no enhancement. Objective - Vital Signs Vital signs: Vital Signs Temp 98.0 F 04/25/24 13:13 Pulse 59 L 04/25/24 13:13 Resp 16 04/25/24 13:13 BP 127/64 04/25/24 13:13 Pulse Ox 98 04/25/24 13:13 FiO2 Intake & Output 04/24/24 04/25/24 04/25/24 18:59 06:59 18:59 Intake Total 716 868 Output Total 600 450 900 Balance 116 -450 -32 Intake: Intake, IV Titration 50 Amount cefTRIAXone 2 gm In 50 Sodium Chloride 0.9% 50 ml @ 100 mls/hr IVPB Q24HR [facility] Rx#:[id number] Oral [id number] Output: Urine 600 450 900 Other: Voiding Method Diaper Diaper Diaper External Catheter External Catheter External Catheter # Voids 1 # Bowel Movements 1 1 - Exam On examination patient is alert and awake in no distress. Speech and language functions are normal. On muscle strength testing (right/left) deltoid 5-/5, biceps 5/5, triceps 5/5, prototype technician 5/5. Hip flexion 2/4-3+, ankle dorsiflexion 5/5, toe extension 5/5. Reflexes are 3+ all over and plantars are possible upgoing versus withdrawals bilaterally. - Labs CBC & Chem 7: 04/22/24 04:30 04/22/24 04:30 Labs: Microbiology - Last 24 Hours (Table) 04/19/24 17:38 Blood Culture - Final Blood 04/19/24 17:53 Blood Culture - Final Blood Assessment and Plan Assessment: This is a 78-year-old woman who presents emergency department because for the past several days she is having leg weakness with loss of balance and had falls. On examination patient has bilateral lower extremity weakness as well as brisk reflex predominantly in the uppers. Bilateral lower extremity weakness with falls in the last 3 weeks with unsteady gait. Examination patient had bilateral lower extremity weakness and brisk reflexes in the uppers. No significant spinal stenosis in the MRI of the cervical spine. MRI Brain no acute subacute stroke or mass that is responsible for symptoms. Low normal vitamin B12 (326) History of stroke in the past Underlying history of hypertension Hyperlipidemia Plan: * MRI brain and cervical: It is reported as no evidence for disc herniation or significant spinal canal stenosis. Mild to moderate disc degeneration with associated osteoarthritic changes. No evidence of of intra-axial mass or acute/subacute infarct. Homogeneously enhancing left lateral dural based 5 mm possible meningioma. Nonspecific white matter changes likely secondary due to small vessel ischemic changes. Scattered susceptibility artifact blooming artifact foci compatible with microhemorrhage. Correlate for amyloid angiopathy versus scattered vascular malformation versus microhemorrhage with hemosiderin deposition. Large left neck to lesser extent right neck thyroid multinodular goiter. * I personally reviewed MRI of the brain and cervical spine, and agree with the findings. * Orthopedic surgery team on board and they ordered MRI lumbar. Agree with checking MRI of the lumbar spine. * PT and OT are consulted * Continue vitamin B12 500mcg daily. Patient also on folic acid 1 mg daily. No need to check the level, as she is already on it. * Patient is on home dose of aspirin 81 mg daily and is on Lipitor 10 mg nightly. * Will defer the rest of the medical management to primary and other specialist
[2024-04-26 10:31] LABS: Basophils # (A) 0.12 X 10*3/uL (0.00-0.10); Basophils % (A) 1.2 %; Eosinophils # (A) 0.54 X 10*3/uL (0.04-0.35); Eosinophils % (A) 5.2 %; HCT 43.9 % (37.2-46.3); HGB 14.1 g/dL (12.0-15.0); Lymphocytes # (A) 1.48 X 10*3/uL (0.90-5.00); Lymphocytes % (A) 14.2 %; MCH 29.2 pg (27.0-32.0); MCHC 32.1 g/dL (32.0-37.0); MCV 90.9 FL (80.0-97.0); Mean Platelet Volume 9.3 FL (9.5-12.2); Monocytes # (A) 0.99 X 10*3/uL (0.20-1.00); Monocytes % (A) 9.5 %; NRBC Per 100 WBC 0 X 10*3/uL (0.00-0.01); Neutrophils # (A) 6.98 X 10*3/uL (1.80-7.70); Platelet Count 265 X 10*3/uL (140-440); RBC 4.83 X 10*6/uL (4.10-5.20); RDW 13.8 % (11.5-14.5); WBC 10.41 X 10*3/uL (4.50-10.00)
[2024-04-26 10:51] LABS: BUN/Creat Ratio 20.62 Ratio (12.00-20.00); Blood Urea Nitrogen 16.5 mg/dL (9.0-27.0); Calcium 9.6 mg/dL (8.7-10.3); Carbon Dioxide 25.8 mmol/L (21.6-31.8); Chloride 101 mmol/L (96-109); Glucose 91 mg/dL (70-110); Potassium 3.9 mmol/L (3.5-5.5); Sodium 139 mmol/L (135-145)
--- NOTE | 2024-04-26 22:18 | MR ---
EXAMINATION TYPE: MR lumbar spine wo/w con DATE OF EXAM: 04/26/2024 COMPARISON: None HISTORY: LBP, falls, weakness. CONTRAST: 15 mL intravenous Gadavist. TECHNIQUE: Multiplanar, multisequence images of the lumbar spine were acquired. FINDINGS: L5-S1: Disc space narrowing is present. Disc desiccation is present. Disc bulging extends beyond the S1 endplate minimal contact with the thecal sac. No nerve root impingement is identified No spinal ca nal stenosis. No foraminal stenosis. L4-L5: There is a grade 1 spondylolisthesis of L4 anteriorly on L5. There is a left paracentral disc herniation extending beyond the endplate of L4 with mild anterior thecal sac compression. No AP spina l canal stenosis present. Correlate with left L5 radicular symptoms L3-L4: No significant disc bulge or disc herniation. No spinal canal stenosis. No foraminal stenosi s. L2-L3: No significant disc bulge or disc herniation. No spinal canal stenosis. No foraminal stenosi s. L1-L2: Minimal disc bulge is present with anterior thecal sac contact. No AP spinal canal stenosis pr esent. No foraminal stenosis. T12-L1: No significant disc bulge or disc herniation. No spinal canal stenosis. No foraminal stenos is. No abnormal enhancement. IMPRESSION: 1. Small left paracentral disc herniation L4-5 with mild anterior thecal sac compression. Correlate f or left L5 radicular symptoms. 2. Mild disc bulging L5-S1 without thecal sac deformity. 3. Minimal disc bulge at L1-2 without canal stenosis.
--- NOTE | 2024-04-26 22:43 | P.PN ---
Subjective Progress Note Date: 04/26/24 Patient is evaluated in follow up on the medical floor currently sitting up in the chair. She is reporting intense pain to the lower back and currently pending Lumbar MRI which is being scheduled. Neurology following. Mentation has improved. 04/26/2024 Patient is evaluated today in follow up family at the bedside. Patient is not reporting lower back pain currently but does report pain to her buttock due to prolonged sitting. Patient has not been much ambulatory and having frequent falls at home. Lumbar MRI resulted and reveals small left paracentral disc herniation L4-L5 with mild anterior thecal sac compression. Correlate for left L5 radicular symptoms. Mild disc bulging L5-S1 without thecal sac deformity. Minimal disc bulge L1-2 without canal stenosis. Pending further recommendations from orthopedics regarding results. White blood cell count 10.41. Renal function remains WNL. Review of Systems Constitutional: Denied any fatigue denied any fever. Cardio vascular: denied any chest pain, palpitations Gastrointestinal: denied any nausea, vomiting, diarrhea Pulmonary: Denied any shortness of breath cough Neurologic denied any new focal deficits All inpatient medications were reviewed and appropriate changes in these medications as dictated in the interval history and assessment and plan. Physical Examination GENERAL: Patient is well-developed and well-nourished. Patient is nontoxic and well- hydrated and is in mild distress. Neck is soft and supple. No significant lymphadenopathy is noted. Oropharynx is clear. Moist mucous membranes. Neck has full range of motion without e liciting any pain. The sclera were anicteric and conjunctiva were pink and moist. Extraocular mov ements were intact and pupils were equal round and reactive to light. Eyelids were unremarkable. PULMONARY: Unlabored respirations. Good breath sounds bilaterally. No audible rales rhonchi or wheezing was noted. CARDIOVASCULAR: There is a regular rate and rhythm without any murmurs gallops or rubs. ABDOMEN: Soft and nontender with normal bowel sounds. No palpable organomegaly was noted. There is no palpable pulsatile mass. NEUROLOGIC; Patient is alert and oriented x3. Cranial nerves II through XII are grossly intact. Motor and sensory are also intact. Normal speech, volume and content. Symmetrical smile. NIH is 0 MUSCULOSKELETAL: Normal extremities with adequate strength and full range of motion. Mild posterior right hip pain on palpation but full range of motion Assessment and Plan -Generalized weakness/recurrent falls -Grade 2 anterolisthesis of L4 on L5 with lumbar spondylosis MRI of the lumbar spine reveals small left paracentral disc herniation L4-5 with mild anterior thecal sac compression. -Concern for microhemorrhage on brain MRI correlate for amyloid angiopathy vs. scattered vascular malformation vs. microhemorrhages with hemosiderin deposition. -Abnormal UA does not appear to be an acute UTI as patients urine culture is normal. -Hypertension -Hyperlipidemia -History of TIA -Multinodular thyroid goiter left greater than right recommending thyroid ultra sound outpatient follow up. GI prophylaxis DVT prophylaxis Plan Neurology follow up regarding brain MRI findings. Concern for possible faint hyperintense lesion on the sagittal T1 per neurology. Pending orthopedics reveiw of the lumbar MRI Continue tylenol PRN Repeat labs in the AM Continue turn Q2 and pressure offloading PT/OT consultation recommending ALY Pending insurance authorization The impression and plan of care has been dictated by Katherine Collado, Nurse Practitioner as directed. Dr. Yolanda MD I have performed a history and physical examination and medical decision making of this patient, discussed the same with the dictator, and agree with the dictators assessment and plan as written, documented as a scribe. Based on total visit time, I have performed more than 50% of this visit. Objective - Vital Signs Vital signs: Vital Signs Temp 98.1 F 04/26/24 13:14 Pulse 56 L 04/26/24 13:14 Resp 16 04/26/24 13:14 BP 127/75 04/26/24 13:14 Pulse Ox 99 04/26/24 13:14 FiO2 Intake & Output 04/25/24 04/26/24 04/26/24 18:59 06:59 18:59 Intake Total 868 540 Output Total 900 600 500 Balance -32 -600 40 Intake: Intake, IV Titration 50 Amount cefTRIAXone 2 gm In 50 Sodium Chloride 0.9% 50 ml @ 100 mls/hr IVPB Q24HR [facility] Rx#:[id number] Oral 818 540 Output: Urine 900 600 500 Other: Voiding Method Diaper Diaper Diaper External Catheter External Catheter External Catheter # Voids 1 # Bowel Movements 1 1 - Labs CBC & Chem 7: 04/26/24 06:05 04/26/24 06:05 Labs: Abnormal Lab Results - Last 24 Hours (Table) 07/09/24 07/09/24 Range/Units 06:05 06:05 WBC 10.41 H (4.50-10.00) X 10*3/uL MPV 9.3 L (9.5-12.2) FL Immature Gran # 0.30 H (0.00-0.04) X 10*3/uL Eosinophils # 0.54 H (0.04-0.35) X 10*3/uL Basophils # 0.12 H (0.00-0.10) X 10*3/uL Anion Gap 12.20 H (4.00-12.00) mmol/L BUN/Creatinine Ratio 20.62 H (12.00-20.00) Ratio Assessment and Plan Time with Patient: Less than 30
[2024-04-27 09:01] VITALS: RESP 17
--- NOTE | 2024-04-27 09:28 | P.PN ---
Subjective Progress Note Date: 04/27/24 Principal diagnosis: 1. Cervical spondylosis 2. Lumbar spondylosis 3. Grade 2 anterolisthesis of L4 on L5 4. Degenerative disc disease Patient seen and examined this morning. Patient is resting comfortably in bed. RN is at bedside for morning med pass. Discussed with patient MRI lumbar results, informed patient we are recommending surgical intervention of L4-S1 decompression and fusion. Patient reports that she was not expecting surgery at this time. Patient would like our service to reach out to her son Fran to discuss surgery and plan of care. Patient does report that she worked with physical therapy yesterday, she was able to tolerate a few steps to sit in chair. She states she is looking forward to working with them again today. Patient continues to report lower extremity radiculopathy with weakness. She does state she has increased lumbar pain with activity. Continue to encourage patient to increase her activity as tolerated. Objective - Vital Signs Vital signs: Vital Signs Temp 97.4 F L 04/27/24 07:44 Pulse 55 L 04/27/24 07:44 Resp 17 04/27/24 07:44 BP 156/82 04/27/24 07:44 Pulse Ox 93 L 04/27/24 07:44 FiO2 Intake & Output 04/26/24 04/27/24 04/27/24 18:59 06:59 18:59 Intake Total 2040 Output Total 1200 500 Balance 840 -500 Intake: Oral 2040 Output: Urine 1200 500 Other: Voiding Method Diaper Diaper External Catheter External Catheter # Voids 0 # Bowel Movements 1 0 - Exam Physical Examination General: The patient is awake and alert, in no acute distress Skin: Skin is warm and dry with no obvious rashes or lesions. Eye: Pupils are equal, round and reactive to light, extra-ocular movements are intact; there is normal conjunctiva bilaterally. Neck: The neck is supple, there is no tenderness and ROM intact. Gastrointestinal: Soft, non-distended, non-tender abdomen. Back: There is no tenderness to palpation in the midline, paralumbar, parathoracic or buttocks region. There is no obvious deformity . Musculoskeletal: FROM. Muscle strength in all major muscle groups of bilateral upper extremities 5/5, bilateral lower extremities 4/5. Neurological: CN 2-12 intact. There are no obvious motor or sensory deficits. Movement and coordination equal and intact. Sensory exam to light touch intact C5-T1 and intact from L2-S1. Reflexes 2/4 in bilateral upper and lower extremities. Negative Hoffmans, babinski, and clonus signs. Psychiatric: Cooperative, appropriate mood & affect, normal judgment. - Labs CBC & Chem 7: 04/26/24 06:05 04/26/24 06:05 Labs: Abnormal Lab Results - Last 24 Hours (Table) 04/26/24 04/26/24 Range/Units 06:05 06:05 WBC 10.41 H (4.50-10.00) X 10*3/uL MPV 9.3 L (9.5-12.2) FL Immature Gran # 0.30 H (0.00-0.04) X 10*3/uL Eosinophils # 0.54 H (0.04-0.35) X 10*3/uL Basophils # 0.12 H (0.00-0.10) X 10*3/uL Anion Gap 12.20 H (4.00-12.00) mmol/L BUN/Creatinine Ratio 20.62 H (12.00-20.00) Ratio Assessment and Plan Assessment: 1. Cervical spondylosis 2. Lumbar spondylosis 3. Grade 2 anterolisthesis of L4 on L5 4. Degenerative disc disease Plan: - MRI of the lumbar spine has been reviewed and discussed with patient. Our service is currently recommending surgical intervention of L4-S1 decompression and fusion. Our service will reach out to discuss further with patient's son, Fran so family can make a confident decision. 2. Appreciate medical and neuro management 3. DVT prophylaxis -aspirin; heparin 4. GI prophylaxis -Protonix 5. Pain management -Tylenol 6. PT/OT -weightbearing as tolerated with walker and assistance 7. Encourage incentive spirometer use I reviewed and discussed this case with my attending Dr. Calle, whom has reviewed this chart and films and is in agreement with assessment and plan of care as outlined above. I have personally seen and examined the patient, performed the documentation and the assessment and plan as written. Number of minutes spent on the visit: 20m
--- NOTE | 2024-04-27 11:01 | P.PN ---
Subjective Progress Note Date: 04/26/24 04/26/2024: Patient was seen for a follow-up. Patient offers no new complaints. Patient is laying comfortably in the bed. 04/25/2024: Patient was initially seen by Dr. Shola Leija. Please refer to his note for details. Patient is a 78-year-old female with leg weakness and fall for last [address] Leija felt MRI of the cervical spine was abnormal. She does have brisk reflexes. Orthopedic ordered MRI of the lumbar spine. Patient at present laying comfortably the bed. I spoke to patient's son on the phone as well, who mentions that on the day prior to arrival, patient fell on the buttock on one day. She was able to get up and went to bed. When she woke up next morning, she could not move her legs, therefore she was brought to the hospital. Patient does have history of chronic incontinence, and for last couple years have been using depends. She has no issues with bowel control. Patient states that her bowel or bladder control has not got worse since this fall. She denies any numbness in the legs, just weakness. Some of the workup during this hospital visit consisted of: TSH: 1.64 Vitamin B12 326 Urinalysis seems possible suggestive of underlying urinary tract infection CT of the head is reported as no acute intracranial process. Remote lacunar injuries along with nonspecific white matter changes likely secondary to chronic microangiopathy. Reviewed CT and I agree patient has chronic white matter changes. Seems the patient has bilateral lacunar stroke over the basal ganglia Spine x-ray and is reported as cervical spine of moderate spondylitic changes especially C5-C6 level degenerative grade 1 anterior lithiasis C3-C4 and C4-C5. The thoracic shows osteopenia. No vertebral or compression collapse or malalignment. Lumbar shows osteopenia. Advanced hypertrophic facet arthroplasty mild to lower lumbar spine with a grade 2 anterior lithiasis at L4- L5. Grade 1 retrolisthesis L1-L4 level. Baastrup disease. CT cervical spine: No evidence of cervical spine fracture. Mild to moderate degenerative disc disease. CT thoracic/lumbar: No evidence of fracture of the thoracic or lumbar spine. No evidence for significant spinal canal or neural stenosis. Grade 2 anterolisthesis of L4 and L5 without spondylosis. Mild to moderate multilevel degeneration changes of spine. MRI brain and cervical: It is reported as no evidence for disc herniation or significant spinal canal stenosis. Mild to moderate disc degeneration with associated osteoarthritic changes. No evidence of of intra-axial mass or acute/subacute infarct. Homogeneously enhancing left lateral dural base 5 mm posterior meningioma. Nonspecific white matter changes likely secondary due to small vessel ischemic changes. Scattered susceptibility artifact blooming artifact foci compatible with microhemorrhage. Correlate for amyloid angiopathy versus scattered vascular malformation versus microhemorrhage with humeral syndrome and deposition. Large left neck total lesser extent right thyroid with multinodular goiter. I personally reviewed the MRI Brain and agree there is no acute or subacute ischemia. There is no contributing to the patient's symptoms. Regarding the cervical spine I felt there is faint hyperintense lesion on the sagittal T1 over the C7-T1 and for Gadolidium there is artifact but felt C6-C7 is close to spinal cord but no enhancement. Objective - Vital Signs Vital signs: Vital Signs Temp 98.1 F 04/26/24 13:14 Pulse 56 L 04/26/24 13:14 Resp 16 04/26/24 13:14 BP 127/75 04/26/24 13:14 Pulse Ox 99 04/26/24 13:14 FiO2 Intake & Output 04/25/24 04/26/24 04/26/24 18:59 06:59 18:59 Intake Total 868 1260 Output Total 762 552 1706 Balance -32 -600 60 Intake: Intake, IV Titration 50 Amount cefTRIAXone 2 gm In 50 Sodium Chloride 0.9% 50 ml @ 100 mls/hr IVPB Q24HR [facility] Rx#:[id number] Oral 818 1260 Output: Urine 982 309 1884 Other: Voiding Method Diaper Diaper Diaper External Catheter External Catheter External Catheter # Voids 1 # Bowel Movements 1 1 1 - Exam On examination patient is alert and awake in no distress. Speech and language functions are normal. On muscle strength testing (right/left) deltoid 5-/5, biceps 5/5, triceps 5/5, deputy commissioner 5/5. Hip flexion 3/4-3+, ankle dorsiflexion 5/5, toe extension 5/5. Reflexes are 3+ all over and plantars are possible upgoing versus withdrawals bilaterally. - Labs CBC & Chem 7: 04/26/24 06:05 04/26/24 06:05 Labs: Abnormal Lab Results - Last 24 Hours (Table) 04/26/24 04/26/24 Range/Units 06:05 06:05 WBC 10.41 H (4.50-10.00) X 10*3/uL MPV 9.3 L (9.5-12.2) FL Immature Gran # 0.30 H (0.00-0.04) X 10*3/uL Eosinophils # 0.54 H (0.04-0.35) X 10*3/uL Basophils # 0.12 H (0.00-0.10) X 10*3/uL Anion Gap 12.20 H (4.00-12.00) mmol/L BUN/Creatinine Ratio 20.62 H (12.00-20.00) Ratio Assessment and Plan Assessment: This is a 78-year-old woman who presents emergency department because for the past several days she is having leg weakness with loss of balance and had falls. On examination patient has bilateral lower extremity weakness as well as brisk reflex predominantly in the uppers. Bilateral lower extremity weakness with falls in the last 3 weeks with unsteady gait. Examination patient had bilateral lower extremity weakness and brisk reflexes in the uppers. No significant spinal stenosis in the MRI of the cervical spine. MRI Brain no acute subacute stroke or mass that is responsible for symptoms. Low normal vitamin B12 (326) History of stroke in the past Underlying history of hypertension Hyperlipidemia Plan: * MRI brain and cervical: It is reported as no evidence for disc herniation or significant spinal canal stenosis. Mild to moderate disc degeneration with associated osteoarthritic changes. No evidence of of intra-axial mass or acute/subacute infarct. Homogeneously enhancing left lateral dural based 5 mm possible meningioma. Nonspecific white matter changes likely secondary due to small vessel ischemic changes. Scattered susceptibility artifact blooming artifact foci compatible with microhemorrhage. Correlate for amyloid angiopathy versus scattered vascular malformation versus microhemorrhage with hemosiderin deposition. Large left neck to lesser extent right neck thyroid multinodular goiter. * I personally reviewed MRI of the brain and cervical spine, and agree with the findings. * MRI of the lumbar spine revealed small left paracentral disc herniation L4-5 with mild anterior thecal sac compression. Correlate for left L5 radicular symptoms. Mild disc bulging L5-S1 without thecal sac deformity. Minimal disc bulge at L1-2 without canal stenosis. There is grade 1 spondylolisthesis of L4 anteriorly on L5. I personally reviewed MRI agree, and believe, the anterolisthesis of L4 on L5 is grade 2 rather than grade 1. * Await final recommendation from orthopedic surgery. * PT and OT are consulted * Patient's strength seems to be slightly better today as compared to yesterday. * Continue vitamin B12 500mcg daily. Patient also on folic acid 1 mg daily. No need to check the folate level, as she is already on it. * Patient is on home dose of aspirin 81 mg daily and is on Lipitor 10 mg nightly. * Will defer the rest of the medical management to primary and other specialist
[2024-04-27 13:32] VITALS: BP 113/63; PULSE 50; TEMP 98.2
--- NOTE | 2024-04-27 13:57 | P.DS ---
Providers Date of admission: 04/21/24 09:48 Attending physician: Alivia Rosales Consults: 04/20/24 15:19 Consult Physician Routine Consulting Provider: Shola Leija Consult Reason/Comments: weakness, ams, hx of cva/tia Do you want consulting provider notified?: Yes 04/21/24 14:47 Consult Physician Urgent Consulting Provider: Karsten Calle Consult Reason/Comments: unsteady gait with falls. Reflexe are brisk Do you want consulting provider notified?: Yes Primary care physician: Chika Waggoner Hospital Course: Final Diagnosis -Generalized weakness/recurrent falls -Grade 2 anterolisthesis of L4 on L5 with lumbar spondylosis MRI of the lumbar spine reveals small left paracentral disc herniation L4-5 with mild anterior thecal sac compression. -Concern for microhemorrhage on brain MRI correlate for amyloid angiopathy vs. scattered vascular malformation vs. microhemorrhages with hemosiderin deposition. -Abnormal UA does not appear to be an acute UTI as patients urine culture is normal. -Hypertension -Hyperlipidemia -History of TIA -Multinodular thyroid goiter left greater than right recommending thyroid ultrasound outpatient follow up. -Stage II pressure injury buttock hospital-acquired Discharge Disposition Patient stable for discharge to subacute rehab with close follow-up with orthopedics on discharge. Patient recommended for a thyroid ultrasound on an outpatient basis. Continue same home medications including additional vitamin support. Patient to repeat blood work in 2 to 3 days. Needs to follow up with a neurologist. The microangiopathy does put patient at risk for bleeding with anticoagulation has been cleared by neurologist to continue with aspirin 81 mg daily on discharge. Continue with pressure reduction to the buttock and barrier zinc paste apply twice a day and as needed. Hospital Course 78-year-old female who presents to the emergency department today because she was unable to ambulate due to bilateral lower extremity weakness. According to the son in the room she was able to walk the day before admission. Has medical history of hypertension, hyperlipidemia, TIA. Patient did fall on thursday had landed on her bottom she is able to move both legs and denies any significant pain but reported some right hip pain. was brought in for further evaluation. Patient denies any chest pain, shortness of breath, no chest pain, no nausea vomiting or diarrhea. Patient had a urinalysis which was abnormal however had a negative urine culture. Patient had CT of the head is reported as no acute intracranial process. Remote lacunar injuries along with nonspecific white matter changes likely secondary to chronic microangiopathy. Seems the patient has bilateral lacunar stroke over the basal ganglia. Spine x-ray and is reported as cervical spine of moderate spondylitic changes especially C5-C6 level degenerative grade 1 anterior lithiasis C3-C4 and C4-C5. The thoracic shows osteopenia. No vertebral or compression collapse or malalignment. Lumbar shows osteopenia. Advanced hypertrophic facet arthroplasty mild to lower lumbar spine with a grade 2 anterior lithiasis at L4-L5. Grade 1 retrolisthesis L1-L4 level. Baastrup disease. Patient was evaluated by orthopedics spinal surgeon and neurology for the findings. Had brain and cervical MRI. Neurology felt Concern for possible faint hyperintense lesion on the sagittal T1 per neurology. Additionally microangiopathy noted. Concern for microhemorrhage and amyloid angiopathy. Patient then went for a lumbar MRI reveals small left paracentral disc herniation L4-L5 with mild anterior thecal sac compression. Correlate for left L5 radicular symptoms. Mild disc bulging L5-S1 without thecal sac deformity. Minimal disc bulge L1-2 without canal stenosis. Orthopedics recommended a cervical decompression and fusion at L4-S1 however this time patient declines any surgical intervention due to her advanced age and other medical comorbidities. She was evaluated physical therapy and will benefit from subacute rehab. Patient does have some maceration and excoriation and a small stage II pressure injury on her buttock due to prolonged bedrest. Her white blood cell count has been elevated on admission to 16.4 has improved down to 10.41. Her renal function has remained within normal limits. B12 level is 326 patient is receiving B12 supplementation. TSH is normal troponin was normal. Patient is not having any shortness of breath he is not having any chest pain no nausea vomiting or diarrhea. She is tolerating diet and her bowels are moving. She is currently pending authorization for discharge to subacute rehab but if obtained patient will be stable for discharge today. Please see medication reconciliation for a list of current medications. Thank you for allowing us to participate in the care of this patient. The impression and plan of care has been dictated by Katherine Collado Nurse Practitioner as directed. Dr. Yolanda MD I have performed a history and physical examination and medical decision making of this patient, discussed the same with the dictator, and agree with the dictators assessment and plan as written, documented as a scribe. Based on total visit time, I have performed more than 50% of this visit. Patient Condition at Discharge: Stable Plan - Discharge Summary Discharge Rx Participant: No New Discharge Prescriptions: New Folic Acid 1 mg PO DAILY@1200 tab Multivitamins, Thera [Multivitamin (formulary)] 1 each PO DAILY@1200 tab Thiamine [Vitamin B-1] 100 mg PO BID-W/MEALS tab Heparin Sodium,Porcine (1 ml) [Heparin Sodium] 5,000 unit SQ Q12HR each Nystatin 100,000 Unit/gm Powd [Mycostatin Powder] 1 applic TOPICAL BID each Pantoprazole [Protonix] 40 mg PO AC-BRKFST tab Acetaminophen Tab [Tylenol] 500 mg PO Q6HR PRN tab PRN Reason: Fever And/ Or Pain Cyanocobalamin [Vitamin B-12] 500 mcg PO DAILY tab Continue amLODIPine [Norvasc] 10 mg PO DAILY Donepezil [Aricept] 10 mg PO HS Simvastatin [Zocor] 20 mg PO HS Lisinopril-Hctz 20-25 mg [Zestoretic 20-25] 1 tab PO DAILY Metoprolol Succinate (ER) [Toprol XL] 50 mg PO DAILY Citalopram Hydrobromide [CeleXA] 20 mg PO HS Aspirin EC [Ecotrin Low Dose] 81 mg PO DAILY Discharge Medication List Donepezil [Aricept] 10 mg PO HS 05/08/14 [History] Lisinopril-Hctz 20-25 mg [Zestoretic 20-25] 1 tab PO DAILY 05/08/14 [History] Simvastatin [Zocor] 20 mg PO HS 05/08/14 [History] amLODIPine [Norvasc] 10 mg PO DAILY 05/08/14 [History] Aspirin EC [Ecotrin Low Dose] 81 mg PO DAILY 04/19/24 [History] Citalopram Hydrobromide [CeleXA] 20 mg PO HS 04/19/24 [History] Metoprolol Succinate (ER) [Toprol XL] 50 mg PO DAILY 04/19/24 [History] Acetaminophen Tab [Tylenol] 500 mg PO Q6HR PRN tab 04/27/24 [Rx] Cyanocobalamin [Vitamin B-12] 500 mcg PO DAILY tab 04/27/24 [Rx] Folic Acid 1 mg PO DAILY@1200 tab 04/27/24 [Rx] Heparin Sodium,Porcine (1 ml) [Heparin Sodium] 5,000 unit SQ Q12HR each 04/27/24 [Rx] Multivitamins, Thera [Multivitamin (formulary)] 1 each PO DAILY@1200 tab 04/27/24 [Rx] Nystatin 100,000 Unit/gm Powd [Mycostatin Powder] 1 applic TOPICAL BID each 04/27/24 [Rx] Pantoprazole [Protonix] 40 mg PO AC-BRKFST tab 04/27/24 [Rx] Thiamine [Vitamin B-1] 100 mg PO BID-W/MEALS tab 04/27/24 [Rx] Follow up Appointment(s)/Referral(s): Claritza Arreguin NPC [Nurse Practitioner] - As Needed Chika Waggoner DO [Primary Care Provider] - 1-2 days [facility] [NON-STAFF] - As Needed Esdras Tobin DO [STAFF PHYSICIAN] - 1 Week Ambulatory/Diagnostic Orders: Basic Metabolic Panel [LAB.AMB] Time Frame: 3 Days, Location: None Selected Complete Blood Count w/diff [LAB.AMB] Location: None Selected Patient Instructions/Handouts: Lumbar Spinal Stenosis (DC) Discharge Disposition: TRANSFER TO SNF/ECF
--- NOTE | 2024-04-27 14:04 | XR ---
EXAMINATION TYPE: XR chest 1V portable DATE OF EXAM: 04/27/2024 COMPARISON: 04/19/2024 INDICATION: Hypoxia TECHNIQUE: Single frontal view of the chest is obtained. FINDINGS: The heart size is largest. The pulmonary vasculature is prominent. There is an infiltrate in the right upper lobe. Some mild increased lung markings are at the lung bas es. Minimal pleural effusions are present. There is an ET tube located 3.7 cm above the alba. Nasogastric tube transverses the thorax tip in t he left upper quadrant of the abdomen. IMPRESSION: 1. Patchy infiltrate on the right. Atypical pulmonary edema could be considered. Differential would i nclude pneumonia. 2. Lines and catheters discussed above
--- NOTE | 2024-04-27 15:34 | XR ---
EXAMINATION TYPE: XR chest 1V portable DATE OF EXAM: 04/27/2024 COMPARISON: 04/19/2024 INDICATION: Hypoxia TECHNIQUE: Single frontal view of the chest is obtained. FINDINGS: The heart size is normal. The pulmonary vasculature is normal. The lungs are clear. IMPRESSION: 1. No acute pulmonary process.
--- NOTE | 2024-04-28 10:01 | P.PN ---
Subjective Progress Note Date: 04/27/242023: Patient was seen for a follow-up. 04/26/2024: Patient was seen for a follow-up. Patient offers no new complaints. Patient is laying comfortably in the bed. 04/25/2024: Patient was initially seen by Dr. Shola Leija. Please refer to his note for details. Patient is a 78-year-old female with leg weakness and fall for last [address] Leija felt MRI of the cervical spine was abnormal. She does have brisk reflexes. Orthopedic ordered MRI of the lumbar spine. Patient at present laying comfortably the bed. I spoke to patient's son on the phone as well, who mentions that on the day prior to arrival, patient fell on the buttock on one day. She was able to get up and went to bed. When she woke up next morning, she could not move her legs, therefore she was brought to the hospital. Patient does have history of chronic incontinence, and for last couple years have been using depends. She has no issues with bowel control. Patient states that her bowel or bladder control has not got worse since this fall. She denies any numbness in the legs, just weakness. Some of the workup during this hospital visit consisted of: TSH: 1.64 Vitamin B12 326 Urinalysis seems possible suggestive of underlying urinary tract infection CT of the head is reported as no acute intracranial process. Remote lacunar injuries along with nonspecific white matter changes likely secondary to chronic microangiopathy. Reviewed CT and I agree patient has chronic white matter changes. Seems the patient has bilateral lacunar stroke over the basal ganglia Spine x-ray and is reported as cervical spine of moderate spondylitic changes especially C5-C6 level degenerative grade 1 anterior lithiasis C3-C4 and C4-C5. The thoracic shows osteopenia. No vertebral or compression collapse or malalignment. Lumbar shows osteopenia. Advanced hypertrophic facet arthroplasty mild to lower lumbar spine with a grade 2 anterior lithiasis at L4- L5. Grade 1 retrolisthesis L1-L4 level. Baastrup disease. CT cervical spine: No evidence of cervical spine fracture. Mild to moderate degenerative disc disease. CT thoracic/lumbar: No evidence of fracture of the thoracic or lumbar spine. No evidence for significant spinal canal or neural stenosis. Grade 2 anterolisthesis of L4 and L5 without spondylosis. Mild to moderate multilevel degeneration changes of spine. MRI brain and cervical: It is reported as no evidence for disc herniation or significant spinal canal stenosis. Mild to moderate disc degeneration with associated osteoarthritic changes. No evidence of of intra-axial mass or acute/subacute infarct. Homogeneously enhancing left lateral dural base 5 mm posterior meningioma. Nonspecific white matter changes likely secondary due to small vessel ischemic changes. Scattered susceptibility artifact blooming artifact foci compatible with microhemorrhage. Correlate for amyloid angiopathy versus scattered vascular malformation versus microhemorrhage with humeral syndrome and deposition. Large left neck total lesser extent right thyroid with multinodular goiter. I personally reviewed the MRI Brain and agree there is no acute or subacute ischemia. There is no contributing to the patient's symptoms. Regarding the cervical spine I felt there is faint hyperintense lesion on the sagittal T1 over the C7-T1 and for Gadolidium there is artifact but felt C6-C7 is close to spinal cord but no enhancement. Objective - Vital Signs Vital signs: Vital Signs Temp 97.4 F L 04/27/24 07:44 Pulse 55 L 04/27/24 07:44 Resp 17 04/27/24 07:44 BP 156/82 04/27/24 07:44 Pulse Ox 93 L 04/27/24 07:44 FiO2 Intake & Output 04/26/24 04/27/24 04/27/24 18:59 06:59 18:59 Intake Total 2040 Output Total 1200 500 Balance 840 -500 Intake: Oral 2040 Output: Urine 1200 500 Other: Voiding Method Diaper Diaper Diaper External Catheter External Catheter External Catheter # Voids 0 # Bowel Movements 1 0 - Exam On examination patient is alert and awake in no distress. Speech and language functions are normal. On muscle strength testing (right/left) deltoid 5-/5, biceps 5/5, triceps 5/5, wood heel flap inserter 5/5. Hip flexion 3/4-3+, ankle dorsiflexion 5/5, toe extension 5/5. Reflexes are 3+ all over and plantars are possible upgoing versus withdrawals bilaterally. - Labs CBC & Chem 7: 04/26/24 06:05 04/26/24 06:05 Assessment and Plan Assessment: This is a 78-year-old woman who presents emergency department because for the past several days she is having leg weakness with loss of balance and had falls. On examination patient has bilateral lower extremity weakness as well as brisk reflex predominantly in the uppers. Bilateral lower extremity weakness with falls in the last 3 weeks with unsteady gait. Examination patient had bilateral lower extremity weakness and brisk reflexes in the uppers. No significant spinal stenosis in the MRI of the cervical spine. MRI Brain no acute subacute stroke or mass that is responsible for symptoms. Low normal vitamin B12 (326) History of stroke in the past Underlying history of hypertension Hyperlipidemia Plan: * MRI brain and cervical: It is reported as no evidence for disc herniation or significant spinal canal stenosis. Mild to moderate disc degeneration with associated osteoarthritic changes. No evidence of of intra-axial mass or acute/subacute infarct. Homogeneously enhancing left lateral dural based 5 mm possible meningioma. Nonspecific white matter changes likely secondary due to small vessel ischemic changes. Scattered susceptibility artifact blooming artifact foci compatible with microhemorrhage. Correlate for amyloid angiopathy versus scattered vascular malformation versus microhemorrhage with hemosiderin deposition. Large left neck to lesser extent right neck thyroid multinodular goiter. * I personally reviewed MRI of the brain and cervical spine, and agree with the findings. * MRI of the lumbar spine revealed small left paracentral disc herniation L4-5 with mild anterior thecal sac compression. Correlate for left L5 radicular symptoms. Mild disc bulging L5-S1 without thecal sac deformity. Minimal disc bulge at L1-2 without canal stenosis. There is grade 1 spondylolisthesis of L4 anteriorly on L5. I personally reviewed MRI agree, and believe, the anterolisthesis of L4 on L5 is grade 2 rather than grade 1. * Orthopedic surgery recommending surgical intervention of L4-S1 decompression and fusion. Patient apparently declining surgery due to her age and other medical conditions. She may follow-up with orthopedic surgery outpatient. * PT and OT are consulted * Patient's strength seems to be slightly better today as compared to yesterday. * Continue vitamin B12 500mcg daily. Patient also on folic acid 1 mg daily. No need to check the folate level, as she is already on it. * Patient is on home dose of aspirin 81 mg daily and is on Lipitor 10 mg nightly. * Will defer the rest of the medical management to primary and other specialist * Patient otherwise clear. Patient to follow-up with neurologist in 1 week.
== END 2024-04-27 20:12 | DRG 552 ==
LOC: EC 12:58 → 5NMEDONC 17:30 → OBSVTOIN 04-21 09:48 → 5NMEDONC 04-25 23:28
PROVIDERS: ADMIT Hospitalist; ATTEND Hospitalist
DX: M47.812 Spondylosis without myelopathy or radiculopathy, cervical region (principal); M43.16 Spondylolisthesis, lumbar region; M47.26 Other spondylosis with radiculopathy, lumbar region; E78.5 Hyperlipidemia, unspecified; I10 Essential (primary) hypertension; M16.12 Unilateral primary osteoarthritis, left hip; R82.90 Unspecified abnormal findings in urine; L89.92 Pressure ulcer of unspecified site, stage 2; E04.2 Nontoxic multinodular goiter; M85.88 Other specified disorders of bone density and structure, other site; R32 Unspecified urinary incontinence; M40.292 Other kyphosis, cervical region; R29.6 Repeated falls; W19.XXXA Unspecified fall, initial encounter; F03.90 Unspecified dementia, unspecified severity, without behavioral disturbance, psychotic disturbance, mood disturbance, and anxiety; M48.02 Spinal stenosis, cervical region; M51.16 Intervertebral disc disorders with radiculopathy, lumbar region; Z79.82 Long term (current) use of aspirin; Z79.899 Other long term (current) drug therapy; Z86.73 Personal history of transient ischemic attack (TIA), and cerebral infarction without residual deficits; Z87.440 Personal history of urinary (tract) infections; Z90.49 Acquired absence of other specified parts of digestive tract; Z90.710 Acquired absence of both cervix and uterus
CPT/HCPCS: 36415; 70450; 70553; 71045; 71046; 72082; 72125; 72128; 72131; 72156; 72158; 73502; 80048; 80053; 81001; 82607; 83605; 83735; 84443; 84484; 85025; 85610; 85730; 87040; 87086; 93005; 94760; 96361; 96374; 99285

== ENCOUNTER 2024-10-30 16:08 | Inpatient (IN) | payer MEDICARE, OTHER ==
--- NOTE | 2024-10-30 16:52 | ED ---
General Adult HPI - General Chief complaint: Fall Stated complaint: weakness Time Seen by Provider: 10/30/24 16:15 Source: patient, family, EMS, RN notes reviewed Mode of arrival: EMS Limitations: no limitations - History of Present Illness Initial comments: Patient is a 79-year-old female present to the emergency department with leg weakness. Patient does have history of this intermittently over several months. Patient was in the hospital a couple of months ago with this. Patient was discharged from rehab. Today patient did fall onto her bottom. No significant injury. Patient feels her legs are again too weak to hold her. No significant pain at this time. No head injury or loss of consciousness. No isolated area of weakness. No new confusion - Related Data Home Medications Medication Instructions Recorded Confirmed Donepezil [Aricept] 10 mg PO HS 05/08/14 10/30/24 Lisinopril-Hctz 20-25 mg 1 tab PO DAILY 05/08/14 10/30/24 [Zestoretic 20-25] Simvastatin [Zocor] 20 mg PO HS 05/08/14 10/30/24 amLODIPine [Norvasc] 10 mg PO DAILY 05/08/14 10/30/24 Aspirin EC [Ecotrin Low Dose] 81 mg PO DAILY 04/19/24 10/30/24 Citalopram Hydrobromide [CeleXA] 20 mg PO HS 04/19/24 10/30/24 Metoprolol Succinate (ER) [Toprol 50 mg PO DAILY 04/19/24 10/30/24 XL] Allergies Allergy/AdvReac Type Severity Reaction Status Date / Time No Known Allergies Allergy Verified 10/30/24 16:36 Review of Systems ROS Statement: Those systems with pertinent positive or pertinent negative responses have been documented in the HPI. ROS Other: All systems not noted in ROS Statement are negative. Constitutional: Denies: fever Eyes: Denies: eye pain Endocrine: Denies: fatigue Gastrointestinal: Denies: abdominal pain Musculoskeletal: Denies: back pain Neurological: Reports: as per HPI, weakness. Denies: headache, confusion Past Medical History Past Medical History: CVA/TIA, Hyperlipidemia, Hypertension, Memory Impairment, Osteoarthritis (OA) Additional Past Medical History / Comment(s): Pt states this is all that she knows of right now History of Any Multi-Drug Resistant Organisms: None Reported Past Surgical History: Cholecystectomy, Hysterectomy, Tonsillectomy Past Anesthesia/Blood Transfusion Reactions: No Reported Reaction Past Psychological History: Depression Smoking Status: Never smoker Past Alcohol Use History: None Reported Past Drug Use History: None Reported - Past Family History Mother Family Medical History: Cancer General Exam Limitations: no limitations General appearance: alert, in no apparent distress Head exam: Present: normocephalic Eye exam: Present: normal appearance Neck exam: Present: normal inspection Respiratory exam: Present: normal lung sounds bilaterally Cardiovascular Exam: Present: regular rate, normal rhythm GI/Abdominal exam: Present: soft. Absent: tenderness Extremities exam: Present: normal inspection Neurological exam: Present: alert, oriented X3, CN II-XII intact. Absent: motor sensory deficit Expanded Neurological exam: Present: protecting the airway Speech: Present: fluid speech Motor strength exam: RUE: 5, LUE: 5, RLE: 4, LLE: 4 Eye Response: (4) open spontaneously Motor Response: (6) obeys commands Verbal Response: (5) oriented Psychiatric exam: Present: normal affect, normal mood Skin exam: Present: normal color Course Vital Signs 10/30/24 10/30/24 16:10 18:26 Pulse Rate 57 L 49 L Respiratory 18 18 Rate Blood Pressure 134/90 110/45 O2 Sat by Pulse 96 96 Oximetry EKG Findings - EKG Results: EKG: interpreted by ERMD (Nonspecific T wave), sinus rhythm, normal axis, normal QRS Medical Decision Making - Medical Decision Making Was pt. sent in by a medical professional or institution (, PA, POCKET OPERATOR, urgent care, hospital, or snf...) When possible be specific @ -No Did you speak to anyone other than the patient for history (EMS, parent, family, police, friend...)? What history was obtained from this source @ -Family is present helps provide history as patient is a poor historian. This includes fall without injury and general weakness Did you review nursing and triage notes (agree or disagree)? Why? @ -I reviewed and agree with nursing and triage notes Were old charts reviewed (outside hosp., previous admission, EMS record, old EKG, old radiological studies, urgent care reports/EKG's, snf records)? Report findings @ -No old charts were reviewed Differential Diagnosis (chest pain, altered mental status, abdominal pain women, abdominal pain men, vaginal bleeding, weakness, fever, dyspnea, syncope, headache, dizziness, GI bleed, back pain, seizure, CVA, palpatations, mental health, musculoskeletal)? @ -Differential Weakness: Hypoglycemia, shock, sepsis, hyponatremia, anemia, infection, CT, ETOH, adverse medicine reaction, overdose, stroke, this is not meant to be an all-inclusive list. EKG interpreted by me (3pts min.). @ -As above X-rays interpreted by me (1pt min.). @ -Chest x-ray shows no acute process CT interpreted by me (1pt min.). @ -CT scan of the brain without acute abnormality U/S interpreted by me (1pt. min.). @ -None done What testing was considered but not performed or refused? (CT, X-rays, U/S, labs)? Why? @ -None What meds were considered but not given or refused? Why? @ -None Did you discuss the management of the patient with other professionals (prof wheatley i.e. , PA, POCKET OPERATOR, lab, RT, psych nurse, director social, loan operations specialist, teacher, agricultural technical officer, adult protective caseworker)? Give summary @ -Case discussed with practitioner Amy Gonzalez who will admit covering Dr. Fulton Was smoking cessation discussed for >3mins.? @ -No Was critical care preformed (if so, how long)? @ -No Were there social determinants of health that impacted care today? How? (Homelessness, low income, unemployed, alcoholism, drug addiction, transportation, low edu. Level, literacy, decrease access to med. care, [facility], rehab)? @ -No Was there de-escalation of care discussed even if they declined (Discuss DNR or withdrawal of care, Hospice)? DNR status @ -No What co-morbidities impacted this encounter? (DM, HTN, Smoking, COPD, CAD, Cancer, CVA, ARF, Chemo, Hep., AIDS, mental health diagnosis, sleep apnea, morbid obesity)? @ -None Was patient admitted / discharged? Hospital course, mention meds given and route, prescriptions, significant lab abnormalities, going to OR and other pertinent info. @ -Patient presents with generalized weakness and inability to take care of he rself/ambulate. Patient has UTI on evaluation. Patient will be admitted with IV antibiotics. Patient reevaluated and updated. Admission orders written Undiagnosed new problem with uncertain prognosis? @ -No Drug Therapy requiring intensive monitoring for toxicity (Heparin, Nitro, Insulin, Cardizem)? @ -No Were any procedures done? @ -No Diagnosis/symptom? @ -Weakness, UTI Acute, or Chronic, or Acute on Chronic? @ -Acute, acute Uncomplicated (without systemic symptoms) or Complicated (systemic symptoms)? @ -Complicated with inability to ambulate Side effects of treatment? @ -No Exacerbation, Progression, or Severe Exacerbation? @ -No Poses a threat to life or bodily function? How? (Chest pain, USA, CT, pneumonia, PE, COPD, DKA, ARF, appy, cholecystitis, CVA, Diverticulitis, Homicidal, Suicidal, threat to staff... and all critical care pts) @ -No - Lab Data Result diagrams: 10/30/24 16:49 10/30/24 18:13 Lab Results 10/30/24 10/30/24 10/30/24 Range/Units 16:49 16:49 16:49 WBC 13.4 H (3.8-10.6) k/uL RBC 5.45 H (3.80-5.40) m/uL Hgb 16.4 H (11.4-16.0) gm/dL Hct 49.0 H (34.0-46.0) % MCV 89.9 (80.0-100.0) fL MCH 30.0 (25.0-35.0) pg MCHC 33.4 (31.0-37.0) g/dL RDW 13.3 (11.5-15.5) % Plt Count 241 (150-450) k/uL MPV 8.8 Neutrophils % 84 % Lymphocytes % 9 % Monocytes % 5 % Eosinophils % 1 % Basophils % 0 % Neutrophils # 11.4 H (1.3-7.7) k/uL Lymphocytes # 1.2 (1.0-4.8) k/uL Monocytes # 0.6 (0-1.0) k/uL Eosinophils # 0.2 (0-0.7) k/uL Basophils # 0.0 (0-0.2) k/uL PT 10.7 (10.0-12.5) sec INR 1.0 (<1.2) APTT 20.5 L (22.0-30.0) sec Sodium (137-145) mmol/L Potassium (3.5-5.1) mmol/L Chloride (98-107) mmol/L Carbon Dioxide (22-30) mmol/L Anion Gap mmol/L BUN (7-17) mg/dL Creatinine (0.52-1.04) mg/dL Est GFR (CKD-EPI)AfAm (>60 ml/min/1.73 sqM) Est GFR (CKD-EPI)NonAf (>60 ml/min/1.73 sqM) Glucose (74-99) mg/dL Plasma Lactic Acid Akhil 1.9 (0.7-2.0) mmol/L Calcium (8.4-10.2) mg/dL Magnesium (1.6-2.3) mg/dL Total Bilirubin (0.2-1.3) mg/dL AST (14-36) U/L ALT (4-34) U/L Alkaline Phosphatase (38-126) U/L Troponin I (0.000-0.034) ng/mL Total Protein (6.3-8.2) g/dL Albumin (3.5-5.0) g/dL Urine Color Urine Appearance (Clear) Urine pH (5.0-8.0) Ur Specific [place] (1.001-1.035) Urine Protein (Negative) Urine Glucose (UA) (Negative) Urine Ketones (Negative) Urine Blood (Negative) Urine Nitrite (Negative) Urine Bilirubin (Negative) Urine Urobilinogen (<2.0) mg/dL Ur Leukocyte Esterase (Negative) Urine RBC (0-5) /hpf Urine WBC (0-5) /hpf Urine WBC Clumps (None) /hpf Ur Squamous Epith Cells (0-4) /hpf Urine Bacteria (None) /hpf Hyaline Casts (0-2) /lpf Urine Mucus (None) /hpf 10/30/24 10/30/24 10/30/24 Range/Units 18:13 18:13 18:15 WBC (3.8-10.6) k/uL RBC (3.80-5.40) m/uL Hgb (11.4-16.0) gm/dL Hct (34.0-46.0) % MCV (80.0-100.0) fL MCH (25.0-35.0) pg MCHC (31.0-37.0) g/dL RDW (11.5-15.5) % Plt Count (150-450) k/uL MPV Neutrophils % % Lymphocytes % % Monocytes % % Eosinophils % % Basophils % % Neutrophils # (1.3-7.7) k/uL Lymphocytes # (1.0-4.8) k/uL Monocytes # (0-1.0) k/uL Eosinophils # (0-0.7) k/uL Basophils # (0-0.2) k/uL PT (10.0-12.5) sec INR (<1.2) APTT (22.0-30.0) sec Sodium 138 (137-145) mmol/L Potassium 4.0 (3.5-5.1) mmol/L Chloride 100 (98-107) mmol/L Carbon Dioxide 24 (22-30) mmol/L Anion Gap 14 mmol/L BUN 31 H (7-17) mg/dL Creatinine 1.32 H (0.52-1.04) mg/dL Est GFR (CKD-EPI)AfAm 44 (>60 ml/min/1.73 sqM) Est GFR (CKD-EPI)NonAf 39 (>60 ml/min/1.73 sqM) Glucose 119 H (74-99) mg/dL Plasma Lactic Acid Akhil (0.7-2.0) mmol/L Calcium 10.5 H (8.4-10.2) mg/dL Magnesium 2.2 (1.6-2.3) mg/dL Total Bilirubin 0.7 (0.2-1.3) mg/dL AST 28 (14-36) U/L ALT 22 (4-34) U/L Alkaline Phosphatase 112 (38-126) U/L Troponin I <0.012 (0.000-0.034) ng/mL Total Protein 7.1 (6.3-8.2) g/dL Albumin 4.4 (3.5-5.0) g/dL Urine Color Yellow Urine Appearance Cloudy H (Clear) Urine pH 5.0 (5.0-8.0) Ur Specific [place] 1.024 (1.001-1.035) Urine Protein 1+ H (Negative) Urine Glucose (UA) Negative (Negative) Urine Ketones Negative (Negative) Urine Blood Trace H (Negative) Urine Nitrite Positive H (Negative) Urine Bilirubin Negative (Negative) Urine Urobilinogen <2.0 (<2.0) mg/dL Ur Leukocyte Esterase Large H (Negative) Urine RBC 18 H (0-5) /hpf Urine WBC 94 H (0-5) /hpf Urine WBC Clumps Few H (None) /hpf Ur Squamous Epith Cells 6 H (0-4) /hpf Urine Bacteria Many H (None) /hpf Hyaline Casts 8 H (0-2) /lpf Urine Mucus Few H (None) /hpf Disposition Clinical Impression: Weakness, Inability to walk, Urinary tract infection Disposition: ADMITTED IP TO THIS HOSP Is patient prescribed a controlled substance at d/c from ED?: No Referrals: Chika Fulton DO [Primary Care Provider] - 1-2 days Time of Disposition: 20:06
[2024-10-30 17:32] LABS: Basophils % (A) 0 %; Eosinophils # (A) 0.2 k/uL (0-0.7); Eosinophils % (A) 1 %; HGB 16.4 gm/dL (11.4-16.0); Lymphocytes # (A) 1.2 k/uL (1.0-4.8); Lymphocytes % (A) 9 %; MCHC 33.4 g/dL (31.0-37.0); MCV 89.9 fL (80.0-100.0); Mean Platelet Volume 8.8; Monocytes # (A) 0.6 k/uL (0-1.0); Monocytes % (A) 5 %; Neutrophils # (A) 11.4 k/uL (1.3-7.7); Neutrophils % (A) 84 %; Platelet Count 241 k/uL (150-450); RBC 5.45 m/uL (3.80-5.40); RDW 13.3 % (11.5-15.5); WBC 13.4 k/uL (3.8-10.6)
--- NOTE | 2024-10-30 18:04 | XR ---
EXAMINATION TYPE: XR chest 2V DATE OF EXAM: 10/30/2024 5:35 PM COMPARISON: Chest radiographs from 04/27/2024 CLINICAL INDICATION: Female, 79 years old with history of Weakness; TECHNIQUE: XR chest 2V Frontal and lateral views of the chest. FINDINGS: Lungs/Pleura: There is no evidence of pleural effusion, focal consolidation, or pneumothorax. Pulmonary vascularity: Unremarkable. Heart/mediastinum: Cardiomediastinal silhouette is unremarkable. Musculoskeletal: No acute osseous pathology. IMPRESSION: No acute cardiopulmonary disease/process. [facility], , 10/30/2024 6:01 PM
--- NOTE | 2024-10-30 18:19 | CT ---
EXAMINATION TYPE: CT brain wo con DATE OF EXAM: 10/30/2024 6:01 PM COMPARISON: 04/20/2024 CLINICAL INDICATION: Female, 79 years old with history of weakness, weakness x 1 week, fall earlier t jeet TECHNIQUE: CT of the brain is performed utilizing 3 mm thick sections through the posterior fossa and 3 mm thick sections through the remaining calvarium. Study is performed within 24 hours of arrival to the hospital. Contrast used: mL of , (none if empty) CT DLP: 1146.4 mGycm, Automated exposure control for dose reduction was used. FINDINGS: No abnormal hyperdensity is present to suggest an acute intracranial hemorrhage. No mass lesion is evident. No acute infarcts are evident. There is confluent white matter changes likely chronic white matter is chemic changes. There is an old lacunar infarct left thalmus. Ventricles and sulci are prominent for the patient age. Paranasal sinuses and mastoid air cells within the [id number] are clear. IMPRESSION: 1. No acute intracranial process. Follow up MRI can be performed as clinically indicated. 2. Chronic confluent periventricular white matter ischemic type changes, stable from comparison. 3. Old lacunar infarct left thalamus [facility], , 10/30/2024 6:17 PM
[2024-10-30 18:41] LABS: Appearance,Urine Cloudy (Clear); Bacteria,Urine Many /hpf; Bilirubin,Urine Negative (Negative); Blood,Urine Trace (Negative); Color,Urine Yellow; Glucose,Urine (UA) Negative (Negative); Hyaline Casts,Urine 8 /lpf (0-2); Ketones,Urine Negative (Negative); Leukocyte Esterase,Urine Large (Negative); Mucus,Urine Few /hpf; Nitrite,Urine Positive (Negative); Protein,Urine 1+ (Negative); RBC,Urine 18 /hpf (0-5); Specific Gravity,Urine 1.024 (1.001-1.035); Squamous Epithelial Cell,Urine 6 /hpf (0-4); Urobilinogen,Urine <2.0 mg/dL (<2.0); WBC,Urine 94 /hpf (0-5)
[2024-10-30 18:43] LABS: Prothrombin Time 10.7 sec (10.0-12.5)
[2024-10-30 18:44] LABS: Partial Thromboplastin Time 20.5 sec (22.0-30.0)
[2024-10-30 18:47] LABS: ALT 22 U/L (4-34); AST 28 U/L (14-36); African American GFR (CKD) 44 (>60 ml/min/1.73 sqM); Albumin 4.4 g/dL (3.5-5.0); Alkaline Phosphatase 112 U/L (38-126); Anion Gap 14 mmol/L; Blood Urea Nitrogen 31 mg/dL (7-17); Calcium 10.5 mg/dL (8.4-10.2); Carbon Dioxide 24 mmol/L (22-30); Chloride 100 mmol/L (98-107); Glucose 119 mg/dL (74-99); Magnesium 2.2 mg/dL (1.6-2.3); Non-African American GFR(CKD) 39 (>60 ml/min/1.73 sqM); Sodium 138 mmol/L (137-145); Total Bilirubin 0.7 mg/dL (0.2-1.3); Total Protein 7.1 g/dL (6.3-8.2)
[2024-10-30] MEDS ORDERED: NALOXONE 0.4 MG/ML 1 ML VIAL IV PRN (20:07)
[2024-10-30] MEDS: SODIUM CHLORIDE 0.9% 1,000 ML IV STA (20:58)
[2024-10-30] MEDS: DONEPEZIL 10 MG TAB PO SCH (21:02)
[2024-10-30] MEDS: CITALOPRAM HYDROBROMIDE 20 MG TAB PO SCH (21:02)
[2024-10-30] MEDS: ATORVASTATIN 10 MG TAB PO SCH (21:03)
[2024-10-31] MEDS: ZINC OXIDE PASTE (Z-GUARD) 1 APPLIC TOPICAL PRN (00:27)
[2024-10-31] MEDS: NYSTATIN 100,000 UNIT/GM POWD 15 GM TOPICAL SCH (00:27)
[2024-10-31 08:57] LABS: Blood Urea Nitrogen 27.3 mg/dL (9.0-27.0); Calcium 9.3 mg/dL (8.7-10.3); Carbon Dioxide 22.9 mmol/L (21.6-31.8); Chloride 103 mmol/L (96-109); Glucose 83 mg/dL (70-110); Potassium 3.5 mmol/L (3.5-5.5); Sodium 138 mmol/L (135-145)
[2024-10-31 09:29] LABS: Basophils # (A) 0.06 X 10*3/uL (0.00-0.10); Basophils % (A) 0.6 %; Eosinophils % (A) 2.1 %; HCT 42.9 % (37.2-46.3); HGB 13.5 g/dL (12.0-15.0); Lymphocytes # (A) 1.77 X 10*3/uL (0.90-5.00); MCH 28.5 pg (27.0-32.0); MCHC 31.5 g/dL (32.0-37.0); MCV 90.7 FL (80.0-97.0); Mean Platelet Volume 10.3 FL (9.5-12.2); Monocytes # (A) 0.96 X 10*3/uL (0.20-1.00); Monocytes % (A) 10.3 %; NRBC Per 100 WBC 0 X 10*3/uL (0.00-0.01); Neutrophils # (A) 6.29 X 10*3/uL (1.80-7.70); Neutrophils % (A) 67.6 %; Platelet Count 205 X 10*3/uL (140-440); RBC 4.73 X 10*6/uL (4.10-5.20); RDW 13.5 % (11.5-14.5); WBC 9.32 X 10*3/uL (4.50-10.00)
[2024-10-31] MEDS: ASPIRIN 81 MG PO SCH (09:29)
[2024-10-31] MEDS: METOPROLOL SUCCINATE (ER) 50 MG TAB.ER.24H PO SCH (09:29)
[2024-10-31] MEDS: amLODIPine 10 MG TAB PO SCH (09:29)
[2024-10-31] MEDS: LISINOPRIL-HCTZ 20-25 MG 1 EACH TAB PO SCH (10:35)
[2024-10-31] MEDS: ACETAMINOPHEN TAB 325 MG TAB PO PRN (19:57)
--- NOTE | 2024-11-01 14:20 | P.HPIM ---
History of Present Illness H&P Date: 10/31/24 History of present illness; patient 79-year-old lady with past medical history significant for hypertension, hyperlipidemia presented the ER because of fall and lower extremity weakness. Patient stated that she has been feeling weak for the last couple of months. Patient was eval in the hospital for similar issues and at that time was discharged to rehab. Patient states that yesterday she was trying to walk when her legs gave up and she fell on her bottom. There was no complaint of loss of consciousness.. There was no complaint of weakness of upper extremities. Patient was complaining of lethargy. There is no complaint of fever or chills. Patient denies any nausea or vomiting. Because of these symptoms, patient went to the ER Initial lab work done in the ER showed WBC 13.4, hemoglobin 16.4, platelet count 241, sodium 138, potassium 4, BUN 31, creatinine 1.32, glucose 119, lactate 1.9, calcium 10.5, UA done showed positive nitrite, large amount of leukocyte Estrace, urine WBC 94 EKG done in the ER showed heart rate of , no ST segment elevation or depression seen, no T-wave inversions seen. Chest x-ray done in the ER showed no acute cardiopulmonary process CT head done showed no acute intracranial process, chronic confluent periventricular white matter ischemic type changes, stable from comparison Patient admitted to internal medicine service REVIEW OF SYSTEMS: CONSTITUTIONAL: As mentioned above HEENT: No recent visual problems or hearing problems. Denied any sore throat. CARDIOVASCULAR: No chest pain, orthopnea, PND, no palpitations, no syncope. PULMONARY: No shortness of breath, no cough, no hemoptysis. GASTROINTESTINAL: No diarrhea, no nausea, no vomiting, no abdominal pain. NEUROLOGICAL: No headaches, no weakness, no numbness. HEMATOLOGICAL: Denies any bleeding or petechiae. GENITOURINARY: Denies any burning micturition, frequency, or urgency. MUSCULOSKELETAL/RHEUMATOLOGICAL: Denies any joint pain, swelling, or any muscle pain. ENDOCRINE: Denies any polyuria or polydipsia. The rest of the 14-point review of systems is negative. PHYSICAL EXAMINATION: GENERAL: The patient is alert and oriented x3, not in any acute distress. Well developed, well nourished. HEENT: Pupils are round and equally reacting to light. EOMI. No scleral icterus. No conjunctival pallor. Normocephalic, atraumatic. No pharyngeal erythema. No thyromegaly. CARDIOVASCULAR: S1 and S2 present. No murmurs, rubs, or gallops. PULMONARY: Chest is clear to auscultation, no wheezing or crackles. ABDOMEN: Soft, nontender, nondistended, normoactive bowel sounds. No palpable organomegaly. MUSCULOSKELETAL: No joint swelling or deformity. EXTREMITIES: No cyanosis, clubbing, or pedal edema. NEUROLOGICAL: Gross neurological examination did not reveal any focal deficits. SKIN: No rashes. Assessment and plan UTI Fall Cervical spondylosis Lumbar spondylosis Grade 2 anterolisthesis of L4 on L5 Degenerative disc disease Hypertension Hyperlipidemia Monitor vital signs Monitor CBC Monitor CMP Fall precautions Ordered blood cultures ordered urine cultures Continue IV Rocephin Consult orthopedic spine consult ID PT and OT consulted Labs and medication were reviewed.. Continue same treatment. Continue with symptomatic treatment. Resume home medication. Monitor labs and vitals. DVT and GI prophylaxis. Further recommendations as per clinical course of the patient Dictation was produced using [employer] dictation software. please excuse any grammatical, word or spelling errors. Past Medical History Past Medical History: CVA/TIA, Hyperlipidemia, Hypertension, Memory Impairment, Osteoarthritis (OA) Additional Past Medical History / Comment(s): Pt states this is all that she knows of right now History of Any Multi-Drug Resistant Organisms: None Reported Past Surgical History: Cholecystectomy, Hysterectomy, Tonsillectomy Past Anesthesia/Blood Transfusion Reactions: No Reported Reaction Past Psychological History: Depression Smoking Status: Never smoker Past Alcohol Use History: None Reported Past Drug Use History: None Reported - Past Family History Mother Family Medical History: Cancer Additional Family Medical History / Comment(s): lung cancer Father Family Medical History: Myocardial Infarction (AR) Additional Family Medical History / Comment(s): from AR Son(s) Family Medical History: Myocardial Infarction (AR) Additional Family Medical History / Comment(s): from AR Medications and Allergies Home Medications Medication Instructions Recorded Confirmed Type Donepezil [Aricept] 10 mg PO HS 05/08/14 10/30/24 History Lisinopril-Hctz 20-25 mg 1 tab PO DAILY 05/08/14 10/30/24 History [Zestoretic 20-25] Simvastatin [Zocor] 20 mg PO HS 05/08/14 10/30/24 History amLODIPine [Norvasc] 10 mg PO DAILY 05/08/14 10/30/24 History Aspirin EC [Ecotrin Low Dose] 81 mg PO DAILY 04/19/24 10/30/24 History Citalopram Hydrobromide [CeleXA] 20 mg PO HS 04/19/24 10/30/24 History Metoprolol Succinate (ER) [Toprol 50 mg PO DAILY 04/19/24 10/30/24 History XL] Allergies Allergy/AdvReac Type Severity Reaction Status Date / Time No Known Allergies Allergy Verified 10/30/24 16:36 Physical Exam Vitals: Vital Signs Temp Pulse Resp BP Pulse Ox 11/01/24 06:49 98.1 F 52 L 18 126/68 96 11/01/24 02:00 98.8 F 54 L 16 143/55 93 L 10/31/24 20:00 99.6 F 69 17 145/62 93 L 10/31/24 13:10 98.4 F 60 15 101/60 95 Intake and Output 10/31/24 11/01/24 11/01/24 22:59 06:59 14:59 Other: Voiding Method Diaper # Voids 2 1 Results CBC & Chem 7: 10/31/24 03:31 10/31/24 03:31 Thrombosis Risk Factor Assmnt - Choose All That Apply Each Factor Represents 1 point: Obesity (BMI >25) Each Risk Factor Represents 3 Points: Age 75 years or older Thrombosis Risk Factor Assessment Total Risk Factor Score: 4 Thrombosis Risk Factor Assessment Level: Moderate Risk
--- NOTE | 2024-11-01 17:05 | P.CNOR ---
History of Present Illness - [facility] Consult date: 11/01/24 Requesting physician: Peter Quarles Consult reason: other (lower extremity weekness) History of present illness: Patient is a 79-year-old female who presented to the emergency department yeste rday due to chief complaint of leg weakness. Patient does have past medical history significant for hypertension, hyperlipidemia. Patient states she has been residing at [facility] over the past few months and has been having significant weakness in the bilateral lower extremities. She says she has been a two-person assist while she is there. Patient denies any significant traumas. She does mentions she does have falls sometimes. Patient says normally she does ambulate using a walker. Patient did present to the hospital back in April 2024 due to the weakness. Orthopedics was consulted due to the lower extremity weakness. Patient denies any upper extremity weakness. Patient denies any saddle anesthesia/loss of bowel or bladder control. Patient denies any chest pain or shortness of breath. Patient denies any previous orthopedic spine surgery. Patient did present to the hospital due to the bilateral lower extremity weakness in April [address]24 Dr. Calle did recommend potential surgical intervention in the form of L4-S1 decompression and fusion. Patient does not want any surgical intervention at this time and just wanted conservative treatment with therapy and pain medication. Patient does not want anything different at this time. Patient does not want any sort of surgery at this time. Patient denies any back pain. Patient denies any numbness in the bilateral lower extremities. Past Medical History Past Medical History: CVA/TIA, Hyperlipidemia, Hypertension, Memory Impairment, Osteoarthritis (OA) Additional Past Medical History / Comment(s): Pt states this is all that she knows of right now History of Any Multi-Drug Resistant Organisms: None Reported Past Surgical History: Cholecystectomy, Hysterectomy, Tonsillectomy Past Anesthesia/Blood Transfusion Reactions: No Reported Reaction Past Psychological History: Depression Smoking Status: Never smoker Past Alcohol Use History: None Reported Past Drug Use History: None Reported - Past Family History Mother Family Medical History: Cancer Additional Family Medical History / Comment(s): lung cancer Father Family Medical History: Myocardial Infarction ([place]) Additional Family Medical History / Comment(s): from [place] Son(s) Family Medical History: Myocardial Infarction ([place]) Additional Family Medical History / Comment(s): from [place] Medications and Allergies Home Medications Medication Instructions Recorded Confirmed Type Donepezil [Aricept] 10 mg PO HS 05/08/14 10/30/24 History Lisinopril-Hctz 20-25 mg 1 tab PO DAILY 05/08/14 10/30/24 History [Zestoretic 20-25] Simvastatin [Zocor] 20 mg PO HS 05/08/14 10/30/24 History amLODIPine [Norvasc] 10 mg PO DAILY 05/08/14 10/30/24 History Aspirin EC [Ecotrin Low Dose] 81 mg PO DAILY 04/19/24 10/30/24 History Citalopram Hydrobromide [CeleXA] 20 mg PO HS 04/19/24 10/30/24 History Metoprolol Succinate (ER) [Toprol 50 mg PO DAILY 04/19/24 10/30/24 History XL] Allergies Allergy/AdvReac Type Severity Reaction Status Date / Time No Known Allergies Allergy Verified 10/30/24 16:36 Physical Examination Inspection: Negative for any open fractures, significant erythema/ecchymos is/open wounds. Sensation: Equal, symmetric, bilateral intact throughout the upper and lower extremities on exam. Palpation: Nontender to palpation throughout spine on exam. Nontender to palpation throughout rest of exam. Range of motion: Patient does have good range of motion in bilateral wrist and elbows in flexion/extension. Patient is able to forward elevate right shoulder to about 115 degrees on her own. Patient can forward elevate left shoulder to about 125 degrees. Patient does have limited range of motion of the bilateral hips and knees in flexion/extension while resting in bed. Patient is able to flex the knees to about 60 degrees bilaterally while resting in bed. Patient l acks about 5 degrees full extension in the bilateral knees while resting in bed. Patient does have somewhat limited range of motion in bilateral ankles in dorsi flexion. Motor: 4+/5 supervisor wash house strength bilaterally. 4/5 in all other major motor groups in bilateral upper extremities. 4-/5 in resisted bilateral hip flexors extension and knee flexion so extension. 4/5 in EHL/FHL and bilateral ankle dors i/plantarflexion. Neurovascular: Radial pulse intact, 2+ bilaterally. Cap refill under 3 seconds in digits of upper extremities. Special test: Negative logroll maneuver bilaterally. Negative Homans bilaterally. Negative clonus bilaterally. Negative Shantal bilaterally. Results - Labs Labs: Microbiology - Last 24 Hours (Table) 10/30/24 20:30 Blood Culture - Preliminary Blood H & H 10/30/24 10/31/24 Range/Units 16:49 03:31 Hgb 16.4 H 13.5 (11.4-16.0) gm/dL Hct 49.0 H 42.9 (34.0-46.0) % Coagulation 10/30/24 Range/Units 16:49 INR 1.0 (<1.2) Result Diagrams: 10/31/24 03:31 10/31/24 03:31 Assessment and Plan Assessment: 1. Bilateral lower extremity weakness; grade 2 anterolisthesis of L4 on L5; lumbar spondylosis; degenerative disc disease Plan: 1. Bilateral lower extremity weakness; grade 2 anterolisthesis of L4 on L5; lumbar spondylosis; degenerative disc disease -MRI of lumbar spine from 04/26/2024 has been reviewed. There is evidence of degenerative disc disease throughout the spine. Negative for any compression deformities. Positive for grade 2 anterolisthesis of L4 on L5. I will discuss the findings of the exam and imaging with my attending, Dr. Calle before proceeding with any potential orthopedic intervention. Continue with the use of pain medication and PT/OT at this time . Patient may weight-bear as tolerated with walker and assistance. Patient may benefit from IV steroids during her stay in the hospital. We will continue to follow patient during stay in hospital. Further recommendations to follow 2. Appreciate medical and neuro management 3. DVT prophylaxis -aspirin 4. GI prophylaxis recs 5. Pain management -Tylenol 6. PT/OT -weightbearing as tolerated with walker and assistance 7. Encourage incentive spirometer use 8. Appreciate consult Time with Patient: Less than 30
--- NOTE | 2024-11-02 05:22 | P.CONS ---
History of Present Illness - Reason for Consult Consult date: 11/01/24 UTI Requesting physician: Peter Quarles - Chief Complaint Weakness and fall x 1 day on admission - History of Present Illness Patient is a 79-year-old female with a past medical history significant for hypertension hyperlipidemia CVA TIA memory impairment osteoarthritis patient was brought into the hospital complaining of leg weakness and apparently the patient did have a fall when her legs gave out patient denies having any head injury or loss of consciousness denies any fever or any chills patient denies having any URI symptoms no chest pain shortness of breath or cough no nausea no vomiting or any diarrhea, patient did have urinary frequency and mild burning of urine but no hematuria or flank pain patient did have elevated white count of 13.4 on admission BUN/creatinine has been mildly elevated urine has been significantly positive with a cloudy urine large leukocyte esterase 94 WBC patient has been started on Rocephin unfortunately no culture were done infectious disease was consulted today for for further management of antibiotic therapy Review of Systems Positive point and negatives has been mentioned in the HPI, complete review of systems was performed and all other systems are negative Past Medical History Past Medical History: CVA/TIA, Hyperlipidemia, Hypertension, Memory Impairment, Osteoarthritis (OA) Additional Past Medical History / Comment(s): Pt states this is all that she knows of right now History of Any Multi-Drug Resistant Organisms: None Reported Past Surgical History: Cholecystectomy, Hysterectomy, Tonsillectomy Past Anesthesia/Blood Transfusion Reactions: No Reported Reaction Past Psychological History: Depression Smoking Status: Never smoker Past Alcohol Use History: None Reported Past Drug Use History: None Reported - Past Family History Mother Family Medical History: Cancer Additional Family Medical History / Comment(s): lung cancer Father Family Medical History: Myocardial Infarction ([place]) Additional Family Medical History / Comment(s): from [place] Son(s) Family Medical History: Myocardial Infarction ([place]) Additional Family Medical History / Comment(s): from [place] Medications and Allergies Home Medications Medication Instructions Recorded Confirmed Type Donepezil [Aricept] 10 mg PO HS 05/08/14 10/30/24 History Lisinopril-Hctz 20-25 mg 1 tab PO DAILY 05/08/14 10/30/24 History [Zestoretic 20-25] Simvastatin [Zocor] 20 mg PO HS 05/08/14 10/30/24 History amLODIPine [Norvasc] 10 mg PO DAILY 05/08/14 10/30/24 History Aspirin EC [Ecotrin Low Dose] 81 mg PO DAILY 04/19/24 10/30/24 History Citalopram Hydrobromide [CeleXA] 20 mg PO HS 04/19/24 10/30/24 History Metoprolol Succinate (ER) [Toprol 50 mg PO DAILY 04/19/24 10/30/24 History XL] Nystatin 100,000 Unit/gm Powd 1 applic TOPICAL BID 7 Days #1 each 11/03/24 Rx [Mycostatin Powder] Pregabalin [Lyrica] 50 mg PO BID 3 Days #6 cap 11/03/24 Rx cefuroxime axetiL [Ceftin] 500 mg PO BID 4 Days #8 tab 11/03/24 Rx Allergies Allergy/AdvReac Type Severity Reaction Status Date / Time No Known Allergies Allergy Verified 10/30/24 16:36 Physical Exam Vitals: Vital Signs Temp Pulse Resp BP Pulse Ox 11/01/24 06:49 98.1 F 52 L 18 126/68 96 11/01/24 02:00 98.8 F 54 L 16 143/55 93 L 10/31/24 20:00 99.6 F 69 17 145/62 93 L 10/31/24 13:10 98.4 F 60 15 101/60 95 Intake and Output 10/31/24 11/01/24 11/01/24 22:59 06:59 14:59 Other: Voiding Method Diaper # Voids 2 1 GENERAL DESCRIPTION: Elderly female lying in bed, no distress. No tachypnea or accessory muscle of respiration use. HEENT: Shows Pallor , no scleral icterus. Oral mucous membrane is dry. No pharyngeal erythema or thrush NECK: Trachea central, no thyromegaly. LUNGS: Unlabored breathing. Clear to auscultation anteriorly. No wheeze or crackle. HEART: S1, S2, regular rate and rhythm. No loud murmur ABDOMEN: Soft, no tenderness , guarding or rigidity, no organomegaly EXTREMITIES: No edema of feet. SKIN: No rash, no masses palpable. NEUROLOGICAL: The patient is awake, alert, oriented x3, mood and affect normal. Results CBC & Chem 7: 10/31/24 03:31 01/13/25 03:31 Assessment and Plan (1) Leukocytosis Current Visit: Yes Status: Acute Code(s): D72.829 - ELEVATED WHITE BLOOD CELL COUNT, UNSPECIFIED SNOMED Code(s): 985471693 (2) Urinary tract infection Current Visit: Yes Status: Acute Code(s): N39.0 - URINARY TRACT INFECTION, SITE NOT SPECIFIED SNOMED Code(s): 03115370 Plan: 1patient was in the hospital generalized weakness did have a fall and the patient also having urinary frequency and mild pulmonary positive UA elevated white count concerning for symptomatic UTI likely from enteric gram-negative pathogen unfortunately urine culture were not done and the patient has been started on antibiotics already. 2we will obtain urine culture which may be negative as the patient has been antibiotic at this point 3-for now continue with Rocephin We will follow on clinical condition and cultures to further adjust medication if needed Thank you for this consultation we will follow the patient along with you Dictation was produced using [employer] dictation software. please excuse any grammatical, word or spelling errors. Time with Patient: Greater than 30
[2024-11-02 10:41] LABS: Amorphous Sediment,Urine Rare /hpf; Appearance,Urine Cloudy (Clear); Bacteria,Urine Occasional /hpf; Bilirubin,Urine Negative (Negative); Blood,Urine Negative (Negative); Color,Urine Yellow; Glucose,Urine (UA) Negative (Negative); Hyaline Casts,Urine 1 /lpf (0-2); Ketones,Urine Negative (Negative); Leukocyte Esterase,Urine Small (Negative); Mucus,Urine Rare /hpf; Nitrite,Urine Negative (Negative); PH, Urine 5.5 (5.0-8.0); Protein,Urine Negative (Negative); Squamous Epithelial Cell,Urine 10 /hpf (0-4); Urobilinogen,Urine <2.0 mg/dL (<2.0); WBC,Urine 4 /hpf (0-5)
[2024-11-02] MEDS: ONDANSETRON 4 MG/2 ML VIAL IVP PRN (10:41)
--- NOTE | 2024-11-02 13:47 | P.PN ---
Subjective Progress Note Date: 11/02/24 patient 79-year-old lady with past medical history significant for hypertension, hyperlipidemia presented the ER because of fall and lower extremity weakness. Patient stated that she has been feeling weak for the last couple of months. Patient was eval in the hospital for similar issues and at that time was discharged to rehab. Patient states that yesterday she was trying to walk when her legs gave up and she fell on her bottom. There was no complaint of loss of consciousness.. There was no complaint of weakness of upper extremities. Patient was complaining of lethargy. There is no complaint of fever or chills. Patient denies any nausea or vomiting. Because of these symptoms, patient went to the ER Initial lab work done in the ER showed WBC 13.4, hemoglobin 16.4, platelet count 241, sodium 138, potassium 4, BUN 31, creatinine 1.32, glucose 119, lactate 1.9, calcium 10.5, UA done showed positive nitrite, large amount of leukocyte Estrace, urine WBC 94 EKG done in the ER showed heart rate of , no ST segment elevation or depression seen, no T-wave inversions seen. Chest x-ray done in the ER showed no acute cardiopulmonary process CT head done showed no acute intracranial process, chronic confluent periventricular white matter ischemic type changes, stable from comparison Patient admitted to internal medicine service 11/02. Patient seen and examined. Complaining of constipation. REVIEW OF SYSTEMS: CONSTITUTIONAL: No fever, no malaise,. CARDIOVASCULAR: No chest pain, no palpitations, no syncope. PULMONARY: No shortness of breath, no cough, GASTROINTESTINAL: No diarrhea, no nausea, no vomiting, no abdominal pain. NEUROLOGICAL: No headaches, no weakness, PHYSICAL EXAMINATION: GENERAL: The patient is alert and oriented x3, not in any acute distress. Well developed, well nourished. HEENT: Pupils are round and equally reacting to light. EOMI. No scleral icterus. No conjunctival pallor. Normocephalic, atraumatic. No pharyngeal erythema. No thyromegaly. CARDIOVASCULAR: S1 and S2 present. No murmurs, rubs, or gallops. PULMONARY: Chest is clear to auscultation, no wheezing or crackles. ABDOMEN: Soft, nontender, nondistended, normoactive bowel sounds. No palpable organomegaly. MUSCULOSKELETAL: No joint swelling or deformity. EXTREMITIES: No cyanosis, clubbing, or pedal edema. NEUROLOGICAL: Gross neurological examination did not reveal any focal deficits. SKIN: No rashes. Assessment and plan UTI Fall Cervical spondylosis Lumbar spondylosis Grade 2 anterolisthesis of L4 on L5 Degenerative disc disease Hypertension Hyperlipidemia Monitor vital signs Monitor CBC Monitor CMP Follow-up on blood cultures and follow urine culture Continue pain management Continue IV Rocephin Continue Zestoretic Continue Toprol ID following Orthopedic following Labs and medication were reviewed.. Continue same treatment. Continue with symptomatic treatment. Resume home medication. Monitor labs and vitals. DVT and GI prophylaxis. Further recommendations as per clinical course of the patient Dictation was produced using [employer] dictation software. please excuse any grammatical, word or spelling errors. Objective - Vital Signs Vital signs: Vital Signs Temp 98.0 F 11/02/24 11:03 Pulse 66 11/02/24 11:03 Resp 16 11/02/24 11:03 BP 126/72 11/02/24 11:03 Pulse Ox 100 11/02/24 11:03 FiO2 Intake & Output 11/01/24 11/02/24 11/02/24 18:59 06:59 18:59 Other: Voiding Method Diaper Diaper Incontinent Incontinent External Catheter # Voids 2 2 - Labs CBC & Chem 7: 10/31/24 03:31 10/31/24 03:31 Labs: Abnormal Lab Results - Last 24 Hours (Table) 11/02/24 Range/Units 10:16 Urine Appearance Cloudy H (Clear) Ur Leukocyte Esterase Small H (Negative) Ur Squamous Epith Cells 10 H (0-4) /hpf Amorphous Sediment Rare H (None) /hpf Urine Bacteria Occasional H (None) /hpf Urine Mucus Rare H (None) /hpf Microbiology - Last 24 Hours (Table) 10/30/24 20:30 Blood Culture - Preliminary Blood
--- NOTE | 2024-11-02 14:03 | P.PN ---
Subjective Progress Note Date: 11/02/24 Principal diagnosis: Bilateral lower extremity weakness Patient was seen at bedside this morning lying in semirecumbent position in chair with legs elevated. Patient states she is still having some difficulties getting up out of bed on her own and she does need a two-person assist to get to the chair. Patient does not want any orthopedic surgical intervention at this time. She would like to continue with conservative measures. Patient is open to discussing options with pain management doctors for possible epidural steroid injection. Patient denies any other changes at this time. Objective - Vital Signs Vital signs: Vital Signs Temp 98.0 F 11/02/24 11:03 Pulse 66 11/02/24 11:03 Resp 16 11/02/24 11:03 BP 126/72 11/02/24 11:03 Pulse Ox 100 11/02/24 11:03 FiO2 Intake & Output 11/01/24 11/02/24 11/02/24 18:59 06:59 18:59 Other: Voiding Method Diaper Diaper Incontinent Incontinent External Catheter # Voids 2 2 - Exam Inspection: Negative for any open fractures, significant erythema/ecchymosis/open wounds. Sensation: Equal, symmetric, bilateral intact throughout the upper and lower extremities on exam. Palpation: Nontender to palpation throughout spine on exam. Nontender to palpation throughout rest of exam. Range of motion: Patient does have good range of motion in bilateral wrist and elbows in flexion/extension. Patient is able to forward elevate right shoulder to about 115 degrees on her own. Patient can forward elevate left shoulder to about 125 degrees. Patient does have limited range of motion of the bilateral hips and knees in flexion/extension while resting in bed. Patient is able to flex the knees to about 60 degrees bilaterally while resting in bed. Patient lacks about 5 degrees full extension in the bilateral knees while resting in bed. Patient does have somewhat limited range of motion in bilateral ankles in dorsi flexion. Motor: 4+/5 electronic prepress operator strength bilaterally. 4/5 in all other major motor groups in bilateral upper extremities. 4-/5 in resisted bilateral hip flexors extension and knee flexion so extension. 4/5 in EHL/FHL and bilateral ankle dorsi/plantarflexion. Neurovascular: Radial pulse intact, 2+ bilaterally. Cap refill under 3 seconds in digits of upper extremities. Special test: Negative logroll maneuver bilaterally. Negative Homans bilaterally. Negative clonus bilaterally. Negative Shantal bilaterally. - Labs CBC & Chem 7: 10/31/24 03:31 10/31/24 03:31 Labs: Abnormal Lab Results - Last 24 Hours (Table) 11/02/24 Range/Units 10:16 Urine Appearance Cloudy H (Clear) Ur Leukocyte Esterase Small H (Negative) Ur Squamous Epith Cells 10 H (0-4) /hpf Amorphous Sediment Rare H (None) /hpf Urine Bacteria Occasional H (None) /hpf Urine Mucus Rare H (None) /hpf Microbiology - Last 24 Hours (Table) 10/30/24 20:30 Blood Culture - Preliminary Blood Assessment and Plan Assessment: 1. Bilateral lower extremity weakness; grade 2 anterolisthesis of L4 on L5; shakir mbar spondylosis; degenerative disc disease Plan: 1. Bilateral lower extremity weakness; grade 2 anterolisthesis of L4 on L5; lumbar spondylosis; degenerative disc disease -MRI of lumbar spine from 04/26/2024 has been reviewed. There is evidence of degenerative disc disease throughout the spine. Negative for any compression deformities. Positive for grade 2 anterolisthesis of L4 on L5. I did discuss the findings of the exam and imaging with my attending. Patient does not want any srgical intervention. I did discuss with patient possibility of talking to pain management providers about possible CONNOR. Patient was open to this. We will consult pain management. Continue with the use of pain medication and PT/OT at this time . Patient may weight-bear as tolerated with walker and assistance. Patient may benefit from IV steroids during her stay in the hospital. We will defer rest of management to primiary medical team at this time. Ortho will be available as needed. Please do not hesitate to contact us as needed. 2. Appreciate medical and neuro management 3. DVT prophylaxis -aspirin 4. GI prophylaxis recs 5. Pain management -Tylenol 6. PT/OT -weightbearing as tolerated with walker and assistance 7. Encourage incentive spirometer use 8. Appreciate consult Time with Patient: Less than 30
[2024-11-02] MEDS: LACTULOSE 20 GM/30 ML CUP PO ONE (15:00)
--- NOTE | 2024-11-02 16:56 | P.PAINPG ---
Objective - Vital Signs Vital signs: Vital Signs Temp 98.0 F 11/02/24 11:03 Pulse 66 11/02/24 11:03 Resp 16 11/02/24 11:03 BP 126/72 11/02/24 11:03 Pulse Ox 100 11/02/24 11:03 FiO2 Intake & Output 11/01/24 11/02/24 11/02/24 18:59 06:59 18:59 Other: Voiding Method Diaper Diaper Incontinent Incontinent External Catheter # Voids 2 2 - Labs CBC & Chem 7: 10/31/24 03:31 10/31/24 03:31 Labs: Abnormal Lab Results - Last 24 Hours (Table) 11/02/24 Range/Units 10:16 Urine Appearance Cloudy H (Clear) Ur Leukocyte Esterase Small H (Negative) Ur Squamous Epith Cells 10 H (0-4) /hpf Amorphous Sediment Rare H (None) /hpf Urine Bacteria Occasional H (None) /hpf Urine Mucus Rare H (None) /hpf Microbiology - Last 24 Hours (Table) 10/30/24 20:30 Blood Culture - Preliminary Blood PQRS Measure Charge Sheet Comment: HISTORY OF PRESENT ILLNESS: A 79 yr old inpatient female as a referral from Dr Calle presents today w severe and chronic LBP > 1 yr secondary to radiculopathy, spondylosis and facet arthropathy without myelopathy for evaluation. Pt states pain level is provoked at 8 /10 in intensity, constant, localized in the lower lumbar spine, predominantly axial, achy in character w occasional shooting pain towards the BLEs. Pain is provoked by any movement. Pain is alleviated by medications (Tyl 650mg q6h prn), manual massage, repositioning and rest . Multiple treatment options including L4-S1 Decompression w Fusion have been discussed but pt does not want to undergo surgery and is disinterested in an CONNOR. She will be discharged to subacute care where she will receive in-house PT. Lyrica trial is discussed. PMH: OA, CVA, Hyperlipidemia, HTN, MDD PSH: Cholecystectomy, Hysterectomy, Tonsillectomy SH: Negative x3 FH: Mo- Lung CA. Fa- ND. Son- ND All: See list Meds: See list REVIEW OF ORGAN SYSTEMS: CONSTITUTIONAL: No fevers or chills. No recent weight loss. NEUROLOGICAL: + numbness and tingling along the distal extremities. No seizure disorders or headaches. MUSCULOSKELETAL: + pain PSYCHIATRIC: Denies current depression or suicidal thoughts. Physical Examinations : Constitutional : Cooperative , not in acute distress . Neurologic : Cranial nerve II to XII intact. No focal neurological deficits. Psychiatric : alert & oriented x 3. Matching mood & appropriate affect. Judgment & insight intact. Musculoskeletal : Cervical Spine Motor strength in the deltoid and biceps: Normal right side. Normal Left side Motor strength biceps and the wrist extensors: Normal right side . Normal left side Motor strength in the triceps muscle: Normal right side. Normal left side Deep tendon reflexes: Normal at the biceps. Normal at Brachioradialis. Normal at triceps Vertebral body tenderness to deep palpation over Cervical facet loading test: positive bilaterally Spurling test: positive bilaterally Neck distraction test: positive bilaterally Shantal sign: positive bilaterally Lumbar spine Motor strength lower extremities ,thigh and legs 5/5 Right side , 5/5 Left side Deep tendon reflexes : Normal Knee J erk. Normal Ankle Jerk Vertebral body tenderness over Pandey Test positive Lumbar facet Loading Test: positive Right / positive Left Range of motion of the lumbar spine Flexion 30 degrees, extension 10 degrees Straight Leg Raise test: Left/ Right positive at degrees Joe test: positive right / positive left. Severe tenderness over the Sacroiliac joint on the Right / Left sides Gaenslen test: positive bilaterally Seated flexion test: positive bilaterally. Sacral spine : Severe tenderness over the Sacroiliac joint: right side / left side Range of motion: Flexion of the lumbar spine <60 degrees Range of motion: Extension of the lumbar spine <20 degrees Gaenslen's Test positive Joe test: positive right side / left side Thigh Thrust Test Sacral Thrust Test Imaging: MRI non contrast lumbar spine from 04/26/24 reviewed Assessment/ Plan : L4-L5 spondylolisthesis Recommendation of medication management. Lyrica 50mg QD x 7 days, then BID thereafter. May follow up in clinic thereafter for continued management. She is agreeable to this plan. All questions answered. I have spent greater than 30 minutes on patient care today. Dr Mandel was available by phone for the evaluation of this patient. The time was used to review the medical records including relevant urine studies and Prescription history (MAPs), review of the available imaging, evaluation and examination of the patient, coordination of care with the medical staff and if applicable referring physicians, as well as creation of the medical record Pain Comment: pt stated she wears depends for incontinence of urine. Pt stated that she usually gets up to the toilet for a BM, but has been going in brief since she has had increased weakeness. Pt stated that her has to help her get up from chair and she uses a rolling walker to get around. Pt stated that she was recently discharged from [facility] in [place] a few weeks ago. But she was there for 4 months, but can't recall the reason that she was there. PQRS Narrative: Smoking Status Never smoker Blood Pressure [Right Arm] 126/72 Blood Pressure 153/70 Pain Intensity [None] 0 Pain Intensity 6 Pain Scale Used Non Verbal Pain Indicator Scale Used Numeric (1 - 10) Home Medications: Ambulatory Orders Donepezil [Aricept] 10 mg PO HS 05/08/14 Lisinopril-Hctz 20-25 mg [Zestoretic 20-25] 1 tab PO DAILY 05/08/14 Simvastatin [Zocor] 20 mg PO HS 05/08/14 amLODIPine [Norvasc] 10 mg PO DAILY 05/08/14 Aspirin EC [Ecotrin Low Dose] 81 mg PO DAILY 04/19/24 Citalopram Hydrobromide [CeleXA] 20 mg PO HS 04/19/24 Metoprolol Succinate (ER) [Toprol XL] 50 mg PO DAILY 04/19/24 Controlled Substance Measures - Controlled Substance Measures Is patient prescribed a controlled substance at discharge?: Yes When asked, does pt state using other controlled substances?: No If prescribed controlled substance>3 days was MAPS reviewed?: Yes If Rx opioid, was Start Talking consent form obtained?: Yes
[2024-11-02] MEDS: PREGABALIN 50 MG CAP PO SCH (20:27)
[2024-11-03 08:02] VITALS: RESP 16
--- NOTE | 2024-11-03 13:28 | P.DS ---
Providers Date of admission: 11/02/24 08:49 Expected date of discharge: 11/03/24 Attending physician: Alivia Rosales Consults: 11/01/24 10:55 Consult Physician Routine Consulting Provider: Shavon Alexander Consult Reason/Comments: UTI Do you want consulting provider notified?: Yes 11/01/24 11:03 Consult Physician Routine Consulting Provider: Karsten Calle Reason/Comments: lower extremity weekness Do you want consulting provider notified?: Yes 11/02/24 14:03 Consult Physician Routine Consulting Provider: Eda Mandel Consult Reason/Comments: pain management recs - possible CONNOR; pt does not want any spine surgery Do you want consulting provider notified?: Yes Primary care physician: Chika Waggoner Hospital Course: Discharge diagnoses; UTI Fall Cervical spondylosis Lumbar spondylosis Grade 2 anterolisthesis of L4 on L5 Degenerative disc disease Hypertension Hyperlipidemia Hospital course; patient 79-year-old lady with past medical history significant for hypertension, hyperlipidemia presented the ER because of fall and lower extremity weakness. Patient stated that she has been feeling weak for the last couple of months. Patient was eval in the hospital for similar issues and at that time was discharged to rehab. Patient states that yesterday she was trying to walk when her legs gave up and she fell on her bottom. There was no complaint of loss of consciousness.. There was no complaint of weakness of upper extremities. Patient was complaining of lethargy. There is no complaint of fever or chills. Patient denies any nausea or vomiting. Because of these symptoms, patient went to the ER Initial lab work done in the ER showed WBC 13.4, hemoglobin 16.4, platelet count 241, sodium 138, potassium 4, BUN 31, creatinine 1.32, glucose 119, lactate 1.9, calcium 10.5, UA done showed positive nitrite, large amount of leukocyte Estrace, urine WBC 94 EKG done in the ER showed heart rate of , no ST segment elevation or depression seen, no T-wave inversions seen. Chest x-ray done in the ER showed no acute cardiopulmonary process CT head done showed no acute intracranial process, chronic confluent periventricular white matter ischemic type changes, stable from comparison Patient admitted to internal medicine service 11/02. Patient seen and examined. Complaining of constipation. Orthopedic spine had evaluated the patient, patient is not interested in any surgery or CONNOR. Pain management consulted, they eval the patient, recommended adding Ly laya. 11/03. Patient seen and examined. Being discharged on Ceftin for 4 more days. Outpatient follow-up with PCP PHYSICAL EXAMINATION: GENERAL: The patient is alert and oriented x3, not in any acute distress. Well developed, well nourished. HEENT: Pupils are round and equally reacting to light. EOMI. No scleral icterus. No conjunctival pallor. Normocephalic, atraumatic. No pharyngeal erythema. No thyromegaly. CARDIOVASCULAR: S1 and S2 present. No murmurs, rubs, or gallops. PULMONARY: Chest is clear to auscultation, no wheezing or crackles. ABDOMEN: Soft, nontender, nondistended, normoactive bowel sounds. No palpable organomegaly. MUSCULOSKELETAL: No joint swelling or deformity. EXTREMITIES: No cyanosis, clubbing, or pedal edema. NEUROLOGICAL: Gross neurological examination did not reveal any focal deficits. SKIN: No rashes. Dictation was produced using [employer] dictation software. please excuse any grammatical, word or spelling errors. Patient Condition at Discharge: Fair Plan - Discharge Summary New Discharge Prescriptions: New cefuroxime axetiL [Ceftin] 500 mg PO BID 4 Days #8 tab Pregabalin [Lyrica] 50 mg PO BID 3 Days #6 cap Nystatin 100,000 Unit/gm Powd [Mycostatin Powder] 1 applic TOPICAL BID 7 Days #1 each Continue amLODIPine [Norvasc] 10 mg PO DAILY Donepezil [Aricept] 10 mg PO HS Simvastatin [Zocor] 20 mg PO HS Lisinopril-Hctz 20-25 mg [Zestoretic 20-25] 1 tab PO DAILY Metoprolol Succinate (ER) [Toprol XL] 50 mg PO DAILY Citalopram Hydrobromide [CeleXA] 20 mg PO HS Aspirin EC [Ecotrin Low Dose] 81 mg PO DAILY Discharge Medication List Donepezil [Aricept] 10 mg PO HS 05/08/14 [History] Lisinopril-Hctz 20-25 mg [Zestoretic 20-25] 1 tab PO DAILY 05/08/14 [History] Simvastatin [Zocor] 20 mg PO HS 05/08/14 [History] amLODIPine [Norvasc] 10 mg PO DAILY 05/08/14 [History] Aspirin EC [Ecotrin Low Dose] 81 mg PO DAILY 04/19/24 [History] Citalopram Hydrobromide [CeleXA] 20 mg PO HS 04/19/24 [History] Metoprolol Succinate (ER) [Toprol XL] 50 mg PO DAILY 04/19/24 [History] Nystatin 100,000 Unit/gm Powd [Mycostatin Powder] 1 applic TOPICAL BID 7 Days #1 each 11/03/24 [Rx] Pregabalin [Lyrica] 50 mg PO BID 3 Days #6 cap 11/03/24 [Rx] cefuroxime axetiL [Ceftin] 500 mg PO BID 4 Days #8 tab 11/03/24 [Rx] Follow up Appointment(s)/Referral(s): Chika Waggoner DO [Primary Care Provider] - 1-2 days Discharge Disposition: TRANSFER TO SNF/ECF
[2024-11-03 15:25] VITALS: BP 107/56; PULSE 61; TEMP 98.1
--- NOTE | 2024-11-03 15:25 | P.PN ---
Subjective Progress Note Date: 11/03/24 Principal diagnosis: Reason for follow-up is leukocytosis/UTI Patient is a 79-year-old female with a past medical history significant for hypertension hyperlipidemia CVA TIA memory impairment osteoarthritis patient was brought into the hospital complaining of leg weakness and apparently the patient did have a fall, patient did have a positive UA elevated white count mental status changes concerning for symptomatic UTI On today's evaluation that is 11/03/2024,the patient remains to be afebrile, patient is on room air not requiring supplemental oxygen and denies any shortness of breath no chest pain or cough.Patient denies having any nausea or vomiting, no abdominal pain and no diarrhea has been reported. Blood culture have been negative Objective - Vital Signs Vital signs: Vital Signs Temp 97.9 F 11/03/24 07:05 Pulse 62 11/03/24 07:05 Resp 16 11/03/24 07:05 BP 162/72 11/03/24 07:05 Pulse Ox 96 11/03/24 07:05 FiO2 Intake & Output 11/02/24 11/03/24 11/03/24 18:59 06:59 18:59 Intake Total 780 Output Total 600 850 Balance -600 -70 Intake: Oral 780 Output: Urine 600 850 Other: Voiding Method Incontinent Diaper Diaper External Catheter External Catheter # Bowel Movements 1 1 - Exam GENERAL DESCRIPTION: An elderly female up in the chair in no distress RESPIRATORY SYSTEM: Unlabored breathing , decreased breath sounds at bases HEART: S1 S2 regular rate and rhythm , ABDOMEN: Soft , no tenderness EXTREMITIES: No edema feet - Labs CBC & Chem 7: 10/31/24 03:31 10/31/24 03:31 Labs: Microbiology - Last 24 Hours (Table) 10/30/24 20:30 Blood Culture - Preliminary Blood Assessment and Plan (1) Leukocytosis Current Visit: Yes Status: Acute Code(s): D72.829 - ELEVATED WHITE BLOOD C ELL COUNT, UNSPECIFIED SNOMED Code(s): 936007615 (2) Urinary tract infection Current Visit: Yes Status: Acute Code(s): N39.0 - URINARY TRACT INFECTION, SITE NOT SPECIFIED SNOMED Code(s): 39484846 Plan: 1patient was in the hospital generalized weakness did have a fall and the patient also having urinary frequency and mild pulmonary positive UA elevated white count concerning for symptomatic UTI likely from enteric gram-negative pathogen unfortunately urine culture were not done and the patient has been started on antibiotics already. 2patient white count has normalized blood culture have been negative consider finishing therapy short course of oral Ceftin discussed with admitting physician Dictation was produced using [employer]] dictation software. please excuse any grammatical, word or spelling errors. Time with Patient: Less than 30
--- NOTE | 2024-11-03 15:26 | P.PN ---
Subjective Progress Note Date: 11/02/24 Principal diagnosis: Reason for follow-up is leukocytosis/UTI Patient is a 79-year-old female with a past medical history significant for hypertension hyperlipidemia CVA TIA memory impairment osteoarthritis patient was brought into the hospital complaining of leg weakness and apparently the patient did have a fall, patient did have a positive UA elevated white count mental status changes concerning for symptomatic UTI On today's evaluation that is 11/02/2024,the patient denies any fever or any chills, patient is breathing comfortably on room air, the patient denies chest pain shortness of breath and no significant cough, patient denies abdominal pain, no nausea vomiting or diarrhea. No lab draw today Objective - Vital Signs Vital signs: Vital Signs Temp 98.0 F 11/02/24 11:03 Pulse 66 11/02/24 11:03 Resp 16 11/02/24 11:03 BP 126/72 11/02/24 11:03 Pulse Ox 100 11/02/24 11:03 FiO2 Intake & Output 11/01/24 11/02/24 11/02/24 18:59 06:59 18:59 Other: Voiding Method Diaper Diaper Incontinent Incontinent External Catheter # Voids 2 2 - Exam GENERAL DESCRIPTION: An elderly female up in the chair in no distress RESPIRATORY SYSTEM: Unlabored breathing , decreased breath sounds at bases HEART: S1 S2 regular rate and rhythm , ABDOMEN: Soft , no tenderness EXTREMITIES: No edema feet - Labs CBC & Chem 7: 10/31/24 03:31 10/31/24 03:31 Labs: Abnormal Lab Results - Last 24 Hours (Table) 11/02/24 Range/Units 10:16 Urine Appearance Cloudy H (Clear) Ur Leukocyte Esterase Small H (Negative) Ur Squamous Epith Cells 10 H (0-4) /hpf Amorphous Sediment Rare H (None) /hpf Urine Bacteria Occasional H (None) /hpf Urine Mucus Rare H (None) /hpf Microbiology - Last 24 Hours (Table) 10/30/24 20:30 Blood Culture - Preliminary Blood Assessment and Plan (1) Leukocytosis Current Visit: Yes Status: Acute Code(s): D72.829 - ELEVATED WHITE BLOOD CELL COUNT, UNSPECIFIED SNOMED Code(s): 872808911 (2) Urinary tract infection Current Visit: Yes Status: Acute Code(s): N39.0 - URINARY TRACT INFECTION, SITE NOT SPECIFIED SNOMED Code(s): 02202103 Plan: 1patient was in the hospital generalized weakness did have a fall and the patient also having urinary frequency and mild pulmonary positive UA elevated white count concerning for symptomatic UTI likely from enteric gram-negative pathogen unfortunately urine culture were not done and the patient has been started on antibiotics already. 2patient did have drop in the white count with Rocephin to continue antibiotic medical course closely Dictation was produced using [employer] dictation software. please excuse any grammatical, word or spelling errors.
== END 2024-11-03 15:54 | DRG 690 ==
LOC: EC 16:08 → 4SSUR 20:07 → OBSVTOIN 11-02 08:49
PROVIDERS: ADMIT Hospitalist; ATTEND Hospitalist
DX: N39.0 Urinary tract infection, site not specified (principal); M47.816 Spondylosis without myelopathy or radiculopathy, lumbar region; M47.812 Spondylosis without myelopathy or radiculopathy, cervical region; W19.XXXA Unspecified fall, initial encounter; Z79.82 Long term (current) use of aspirin; Z79.899 Other long term (current) drug therapy; M43.16 Spondylolisthesis, lumbar region; K59.00 Constipation, unspecified; I10 Essential (primary) hypertension; F32.A Depression, unspecified; E78.5 Hyperlipidemia, unspecified; M19.90 Unspecified osteoarthritis, unspecified site; Z86.73 Personal history of transient ischemic attack (TIA), and cerebral infarction without residual deficits; Z82.49 Family history of ischemic heart disease and other diseases of the circulatory system; Z90.49 Acquired absence of other specified parts of digestive tract; Z90.710 Acquired absence of both cervix and uterus
CPT/HCPCS: 36415; 70450; 71046; 80048; 80053; 81001; 83605; 83735; 84484; 85025; 85610; 85730; 87040; 93005; 96365; 99285